=== PATIENT | male | born 1980 | race Hispanic/Latino ===

== ENCOUNTER 2018-02-18 17:25 | Inpatient (IN) | payer BC ==
[2018-02-18] MEDS ORDERED: Eptifibatide 20 mg/10mL Inj IVP STA ×2 (17:34→17:35)
[2018-02-18] MEDS ORDERED: Sodium Chloride 0.9% 500 ML IV STA (17:35)
--- NOTE | 2018-02-18 17:36 | ED PDOC ---
Arrival/HPI - General Chief Complaint: Chest Pain Time Seen by Provider: 02/18/18 17:28 Historian: Patient, EMS - History of Present Illness Narrative History of Present Illness (Text): 02/18/18 1725 pt p/w + syncope/indigestion/chest aches prior to emergency department arrival; pt presented himself to local urgent care center ([facility]) prior to emergency department arrival today; pt states he was at a wake and was sitting when he passed out; pt also noted indigestion like symptoms since last night; pt states NO chest pain/pressure, + mild shortness of breath, + lightheadedness , + sweating; no fever/chills, no palpitations, no abd pain, no n/v, no numbness /tingling; pt denied other complaints; pt's EKG at the local urgent care clinic was significant for acute AR and the doctor there contacted me and notified me of the finding; pt was given full dose ASA and BRILINTA (180mg) from [facility] and pt is to be transferred to the emergency department. upon arrival to the emergency department, I activated Code heart. pt is currently awake and alert pt is cooperative pt denied any urinary/bowel changes no gross bleeding PCP: ?? pt smokes cigars family hx: significant for heart disease in grand parents Time/Duration: 24 hours Symptom Onset: Sudden Symptom Course: Unchanged Severity Level: Mild Activities at Onset: Rest Context: Other (while at a wake) Past Medical History - Provider Review Nursing Documentation Reviewed: Yes - Travel History Have you recently traveled outside [place] w/in the past 3 mons?: No - Past History Past History: Non-Contributing - Infectious Disease Hx of Infectious Diseases: None - Cardiac Hx Cardiac Disorders: No - Gastrointestinal Hx Gastroesophageal Reflux: Yes - Psychiatric Hx Substance Use: No Family/Social History - Physician Review Nursing Documentation Reviewed: Yes Family/Social History: No Known Family HX Smoking Status: smoke cigars Hx Alcohol Use: No Hx Substance Use: No Hx Substance Use Treatment: No Allergies/Home Meds Allergies/Adverse Reactions: Allergies No Known Allergies Allergy (Verified 02/18/18 17:27) Home Medications: Home Meds Medication Instructions Recorded Confirmed Ranitidine HCl [Zantac] 300 mg PO BID 02/18/18 02/18/18 Review of Systems - Review of Systems Constitutional: Normal Eyes: Normal ENT: Normal Respiratory: absent: SOB Cardiovascular: Chest Pain, SHAH, Syncope. absent: Palpitations Gastrointestinal: Normal. absent: Abdominal Pain Genitourinary Male: Normal Musculoskeletal: Normal Skin: Normal Neurological: Dizziness Endocrine: Diaphoresis Hemo/Lymphatic: Normal Psychiatric: Normal Physical Exam - Physical Exam Narrative Physical Exam (Text): 02/18/18 1728 General: alert/awake, GCS = 15, oriented x 3, resting in bed, uncomfortable, cooperative, interactive; NAD Head: NC/AT EYE: PERRLA, EOMI, sclera anicteric, no nystagmus, no photophobia; visual field intact b/l Facial: WNL Oral: uvula/tongue are midline, no exudate/lesions, no drooling/stridor, no dysphonia; intact dentitions; moist oral mucosa NECK: intact ROM, no midline tenderness, no nuchal rigidity, no meningeal signs ; no step off Chest: CTA b/l, no w/r/r; no tachypenia, no accessory muscle use noted Cardiac: +S1, +S2, no m/r/r, + tachycardia Abdominal: +BS, soft/nd/nt, well nourished patient; no masses/rebound/guarding/ rigidity; no carrington's sign, no mcburney's point tenderness Extremities: intact ROM, strength 5/5 grossly intact in all limbs, neurovasc intact b/l; + ambulatory; reflex +2/2; no pitting edema/swelling b/l; no Marina' s sign b/l BACK: no step off, no midline tenderness, NO crepitus, no gross deformities noted; Intact ROM SKIN: cap refill < 1 sec, no ulcerations, no petechiae, no rashes NEURO: CNII-XII WNL, no facial asymmetries, no slurr speech, oriented x 3 NIH stroke scale ~ 0 Psych: normal insight, normal affect; follows command with ease Vital Signs Reviewed: Yes Vital Signs Temp Pulse Resp BP Pulse Ox 02/18/18 18:00 98 F 86 18 143/69 98 02/18/18 17:51 98 H 18 129/92 H 100 02/18/18 17:25 98.5 F 122 H 18 148/85 99 Temperature: Afebrile Blood Pressure: Hypertensive Pulse: Tachycardic Respiratory Rate: Normal Appearance: Positive for: Well-Appearing, Uncomfortable. No: Non-Toxic, Ill- Appearing, Unkept Pain Distress: None Mental Status: Positive for: Alert and Oriented X 3 - Systems Exam Head: Present: Atraumatic, Normocephalic Medical Decision Making ED Course and Treatment: 02/18/18 17:34 Impression: syncope/chest pain, acute AR I have considered all differential diagnoses regarding patients chief medical complaints/clinical findings which include but are not limited to: acute AR Plan: syncope/chest pain -- labs -- acs eval -- xray -- Reassess and disposition Prior Visits: NO PREVIOUS visits noted Progress Notes: pt's vital signs: noted elevated hr pt is awake and alert pt states he does not have chest pain/pressure 02/18/18 17:27 Code heart activated at this time. pt is made aware of his medical results agrees with intervention/admission 02/18/18 17:32 Discussed case in detail with Dr. Ward (card cath licensed professional counselor) who wants Integrilin bolus x2 and drip. Dr. Ward does not want Heparin; will take patient to the garden labourer 02/18/18 17:39 Patient reports chest pain is minimal. Patient is awake, alert, responding properly and cooperative. 02/18/18 17:41 Discussed case in detail with Dr. Duvall, PCP licensed professional counselor. Agrees with plan of care and would like to consult shredding machine operator licensed professional counselor; will admit patient to his service 02/18/18 17:43 Dr. Olvera, shredding machine operator on-call, made aware. Will evaluate the patient after patient is catheterized. 02/18/18 17:51 Patient had an episode of unresponsive ventricular tachycardia, was shocked twice, and became responsive bolus of amiodarone was provided to the patient vital signs noted with mild HTN pt is awake/alert, oriented x 3 pt is subsequently transported to the garden labourer for further intervention Re-evaluation Time: 17:55 Reassessment Condition: Worse - Critical Care Critical Care Minutes: 45 minutes Critical Care Time: Excluding Proc Time Narrative Critical Care (Text): 02/18/18 18:24 critical care time: 45min, excluding procedure time, excluding time teaching residents/students/mid-level providers; including initial eval/diagnosis, diagnostic interpretation, re-eval, consultations, final disposition - Lab Interpretations Lab Results: 02/18/18 17:45 02/18/18 17:45 Lab Results 02/18/18 17:45: PT 11.5, INR 1.01, APTT 27.9 02/18/18 17:45: Sodium 140, Potassium 3.3 L, Chloride 100, Carbon Dioxide 22, Anion Gap 22 H, BUN 13, Creatinine 0.7 L, Est GFR ( Amer) > 60, Est GFR ( Non-Af Amer) > 60, Random Glucose 146 H, Calcium 9.8, Magnesium 1.9, Total Bilirubin 0.5, AST 71 H, ALT 82 H, Alkaline Phosphatase 57, Lactate Dehydrogenase 574, Total Creatine Kinase 220, Troponin I 0.09, NT-Pro-B Natriuret Pep 82.3, Total Protein 8.2, Albumin 5.1 H, Globulin 3.1, Albumin/ Globulin Ratio 1.6 02/18/18 17:45: WBC 10.8, RBC 5.09, Hgb 15.1, Hct 42.4, MCV 83.3, MCH 29.7, MCHC 35.6, RDW 12.8, Plt Count 240, MPV 10.9, Gran % 65.6, Lymph % (Auto) 25.8, [place] % (Auto) 7.7 H, Eos % (Auto) 0.7 L, Baso % (Auto) 0.2, Gran # 7.10 H, Lymph # (Auto) 2.8, [place] # (Auto) 0.8 H, Eos # (Auto) 0.1, Baso # (Auto) 0.02 I have reviewed the lab results: Yes Interpretation: Abnormal lab values (elevated GLUC/trop, decr K) - RAD Interpretation Narrative RAD Interpretations (Text): 02/18/18 18:26 Chest X-Ray: NAD, no widened mediastinum; as read by me Radiology Orders: 02/18/18 17:33 CHEST PORTABLE [RAD] Stat Desilverizer: ED Physician - EKG Interpretation EKG Interpretation (Text): 02/18/18 18:27 SINUS tach at 130 bpm, normal axis, no ectopy, ST elevation noted II/III/F/V6, depressions noted L, V2-5; ACUTE AR; no old ekg to compare with Interpreted by ED Physician: Yes Type: 12 lead EKG Comparison: No previous EKG avail. - Medication Orders Current Medication Orders: Eptifibatide (Integrilin) 75 mg in 100 mls @ 16.67 mls/hr IV .Q6H GUILLAUME; 2 MCG/KG /MIN PRN Reason: Protocol Sodium Chloride (Sodium Chloride 0.9%) 1,000 mls @ 100 mls/hr IV .Q10H GUILLAUME Discontinued Medications Eptifibatide (Integrilin Bolus) 18.7 mg IVP STAT STA Stop: 02/18/18 17:35 Last Admin: 02/18/18 17:44 Dose: 18.7 mg Comments: given 9ml x2 10 mins apart IVP Administration Document 02/18/18 17:44 [facility] (Rec: 02/18/18 18:13 [facility] [id number]) Charges for Administration # of IVP Administrations 2 Eptifibatide (Integrilin Bolus) 18.7 mg IVP STAT STA Stop: 02/18/18 17:36 Last Admin: 02/18/18 17:34 Dose: 18.7 mg IVP Administration Document 02/18/18 17:34 [facility] (Rec: 02/18/18 18:12 [facility] [id number]) Charges for Administration # of IVP Administrations 1 Sodium Chloride (Sodium Chloride 0.9%) 500 mls @ 999 mls/hr IV .Q31M STA Stop: 02/18/18 18:05 Last Admin: 02/18/18 17:35 Dose: 999 mls/hr eMAR Start Stop Document 02/18/18 17:35 [facility] (Rec: 02/18/18 18:12 [facility] [id number]) Intravenous Solution Start Date 02/18/18 Start Time 17:35 Amiodarone HCl/Dextrose (Nexterone 150 Mg In Dextrose 100 Ml (Premix)) 150 mg in 100 mls @ 600 mls/hr IVPB ONCE ONE PRN Reason: Protocol Stop: 02/18/18 18:00 Last Admin: 02/18/18 17:54 Dose: 600 mls/hr eMAR Start Stop Document 02/18/18 17:54 [facility] (Rec: 02/18/18 18:15 [facility] [id number]) Intravenous Solution Start Date 02/18/18 Start Time 17:54 Amiodarone HCl/Dextrose (Nexterone 150 Mg In Dextrose 100 Ml (Premix)) 150 mg in 100 mls @ 600 mls/hr IVPB ONCE ONE PRN Reason: Protocol Stop: 02/18/18 18:01 Metoprolol Tartrate (Lopressor) 5 mg IVP STAT STA Stop: 02/18/18 17:40 Last Admin: 02/18/18 17:45 Dose: Disposition/Present on Arrival - Present on Arrival Any Indicators Present on Arrival: No History of DVT/PE: No History of Uncontrolled Diabetes: No Urinary Catheter: No History of Decub. Ulcer: No History Surgical Site Infection Following: None - Disposition Have Diagnosis and Disposition been Completed?: Yes Diagnosis: Acute AR, Hypokalemia Disposition: HOSPITALIZED Disposition Time: 17:50 Patient Plan: Admission, ICU Patient Problems: Current Active Problems Problem Status Onset Acute AR Acute Hypokalemia Acute Condition: FAIR
[2018-02-18] MEDS ORDERED: Lidocaine 2% Inj (20ml) ONE (17:38)
[2018-02-18] MEDS ORDERED: Phenylephrine 10 mg/ml Inj ONE (17:38)
[2018-02-18] MEDS ORDERED: Iohexol 350mgl/ml 50 ML ONE (17:39)
[2018-02-18] MEDS ORDERED: Iodixanol 320 MG/ML 200 ML BOTTLE IV ONE (17:39)
[2018-02-18] MEDS ORDERED: Midazolam 2 MG/2 ML VIAL ONE ×3 (17:39→18:25)
[2018-02-18] MEDS ORDERED: Metoprolol 1 mg/ml Inj IVP STA (17:39)
[2018-02-18] MEDS ORDERED: Nitroglycerin 50mg in D5W 0 MG/0 ML BOTTLE IV ONE (17:39)
[2018-02-18] MEDS ORDERED: Iodixanol 320 MG/ML 100 ML BOTTLE IV ONE (17:39)
[2018-02-18] MEDS ORDERED: Metoprolol 1 mg/ml Inj IVP ONE (17:43)
[2018-02-18 17:51] LABS: BASO # 0.02 K/mm3 (0.0-2.0); BASO % 0.2 % (0.0-3.0); EOS # 0.1 (0.0-0.7); EOS % 0.7 % (1.5-5.0); GRAN # 7.1 (1.4-6.5); GRAN % 65.6 % (50.0-68.0); HEMOGLOBIN 15.1 g/dL (14.0-18.0); LYMPH # 2.8 (1.2-3.4); LYMPH % 25.8 % (22.0-35.0); MEAN CELL VOLUME 83.3 fl (80.0-105.0); MEAN CORPUSCULAR HEMOGLOBIN 29.7 pg (25.0-35.0); MEAN CORPUSCULAR HGB CONC 35.6 g/dl (31.0-37.0); MEAN PLATELET VOLUME 10.9 fl (7.0-11.0); MONO # 0.8 (0.1-0.6); MONO % 7.7 % (1.0-6.0); RBC 5.09 10^6/uL (3.5-6.1); RED CELL DISTRIBUTION WIDTH 12.8 % (11.5-14.5); WHITE BLOOD COUNT 10.8 10^3/ul (4.5-11.0)
[2018-02-18] MEDS ORDERED: Amiodarone 150 mg/D5W 100 ml 150 MG/100 ML BAG IVPB ONE ×2 (17:51→17:52)
[2018-02-18] MEDS ORDERED: Amiodarone 150mg/3 ml vial ONE (17:55)
[2018-02-18 18:02] LABS: ALB/GLOB RATIO 1.6 (1.1-1.8); ALBUMIN 5.1 g/dL (3.0-4.8); ALT/SGPT 82 U/L (7-56); AST/SGOT 71 U/L (17-59); BLOOD UREA NITROGEN 13 mg/dL (7-21); CALCIUM 9.8 mg/dL (8.4-10.5); GFR AFRICAN-AMERICAN > 60; GFR NON-AFRICAN AMERICAN > 60
[2018-02-18] MEDS ORDERED: Eptifibatide 0.75 mg/ml 75 MG/100 ML BOTTLE IV ONE (18:07)
[2018-02-18 18:08] LABS: INR 1.01 (0.93-1.08); PARTIAL THROMBOPLASTIN TIME 27.9 Seconds (25.1-36.5); PROTHROMBIN TIME 11.5 SECONDS (9.4-12.5)
[2018-02-18 18:13] LABS: B-TYPE NATRIURETIC PEPTIDE 82.3 pg/mL (0-450); TROPONIN I 0.09 ng/mL
--- NOTE | 2018-02-18 18:24 | CP.PCM.PN ---
<Anu Gaines - Last Filed: 02/19/18 07:05> Subjective - Date & Time of Evaluation Date of Evaluation: 02/18/18 Time of Evaluation: 18:22 - Subjective Subjective: Code Heart note 38 yo male presented to ED after syncopal episode at a with chest pressure found to have STEMI. Code heart was called, children's book author was contacted by ED. In ED patient had unresponsive ventricular tachycardia and was shocked twice and given amiodarone bolus. Patient became responsive and was transferred to cardiac cath with non rebreather mask, supplemental oxygen and cardiac monitoring. Patient care was transferred to cardiac cath team and children's book author. Objective - Vital Signs/Intake and Output Vital Signs (last 24 hours): Temp Pulse Resp BP Pulse Ox 98 F 86 18 143/69 98 02/18/18 18:00 02/18/18 18:00 02/18/18 18:00 02/18/18 18:00 02/18/18 18:00 - Medications Medications: Current Medications Eptifibatide (Integrilin) 75 mg in 100 mls @ 16.67 mls/hr IV .Q6H GUILLAUME; 2 MCG/KG /MIN PRN Reason: Protocol Sodium Chloride (Sodium Chloride 0.9%) 1,000 mls @ 100 mls/hr IV .Q10H GUILLAUME - Labs Labs: 02/18/18 17:45 02/18/18 17:45 PT 11.5 SECONDS (9.4-12.5) 02/18/18 17:45 INR 1.01 (0.93-1.08) 02/18/18 17:45 APTT 27.9 Seconds (25.1-36.5) 02/18/18 17:45 - Respiratory Exam Respiratory Exam: absent: Respiratory Distress - Cardiovascular Exam Cardiovascular Exam: Tachycardia - Neurological Exam Neurological Exam: Awake Assessment and Plan - Assessment and Plan (Free Text) Assessment: 38 yo male presented to ED after syncopal episode with chest pressure found to have STEMI, transferred to cardiac clinical laboratory aide. <Nette Bowens - Last Filed: 02/19/18 15:36> Objective - Vital Signs/Intake and Output Vital Signs (last 24 hours): Temp Pulse Resp BP Pulse Ox 98.4 F 82 16 116/60 99 02/19/18 08:00 02/19/18 13:03 02/19/18 12:30 02/19/18 13:03 02/19/18 12:00 - Medications Medications: Current Medications Aspirin (Aspirin) 325 mg PO DAILY [facility] Last Admin: 02/19/18 09:25 Dose: 325 mg Atorvastatin Calcium (Lipitor) 40 mg PO DIN [facility] Last Admin: 02/18/18 21:35 Dose: 40 mg Metoprolol Tartrate (Lopressor) 25 mg PO BRKDIN [facility] Last Admin: 02/19/18 07:30 Dose: Not Given Pantoprazole Sodium (Protonix Ec Tab) 40 mg PO 0600,1600 [facility] Last Admin: 02/19/18 05:50 Dose: 40 mg Ticagrelor (Brilinta) 90 mg PO BID [facility] Last Admin: 02/19/18 09:25 Dose: 90 mg Vitamin D (Vitamin D 400 Intl Units Tab) 400 intlu PO DAILY [facility] - Labs Labs: 02/19/18 05:10 02/19/18 05:10 PT 11.5 SECONDS (9.4-12.5) 02/18/18 17:45 INR 1.01 (0.93-1.08) 02/18/18 17:45 APTT 27.9 Seconds (25.1-36.5) 02/18/18 17:45 Attending/Attestation - Attestation I have personally seen and examined this patient.: Yes I have fully participated in the care of the patient.: Yes I have reviewed all pertinent clinical information, including history, physical exam and plan: Yes Notes (Text): 02/19/18 15:34 attending note; Patient seen and examined with resident during code heart. Patient is 36-year-old male admitted with chest pain and syncopal episode. patient was found to have acute ST elevation CO in the inferior leads. Patient was treated with aspirin, Integrilin, beta javi. Patient had an episode of ventricular fibrillation in the ER. Shocked twice. Started on IV amiodarone. Patient was transferred to cardiac clinical laboratory aide. Status post cardiac cath and drug-eluting stent placement. Monitor patient closely in ICU. Further care By PMD and children's book author.
[2018-02-18] MEDS: Amiodarone 360 mg/D5W 200 ml 360 MG/200 ML BAG IV SCH (19:00)
[2018-02-18] MEDS: Eptifibatide 0.75 mg/ml 75 MG/100 ML BOTTLE IV SCH (19:00)
--- NOTE | 2018-02-18 19:55 | CP.PCM.CON ---
<Cristina Méndez - Last Filed: 02/18/18 22:27> History of Present Illness - History of Present Illness History of Present Illness: PGY-[address] Gregg ICU consult: Code Heart Mr Nathan, 38 M c/o syncope/indigestion/chest aches prior to emergency department arrival. Starting last night, Pt noticed anterior chest comfort of dull burning ache last night and attributed it as indigestion last night. This AM after work, He went to a wake, and while driving he noticed the chest pain radiating to back. During the wake, he was sitting on a sofa. Family noticed that he turned his head to one side, passed out, and suddenly whole body shakes for 5-10 seconds. Pt became awake, and family noticed that he was confused for a while. Then he walked a block to [facility]. His EKG at the local urgent care clinic was significant for acute NH and the doctor there contacted [facility] ED. At the urgent care, he received Brilinta 180, and ASA 325. He was transferred to [facility] ED. Code heart was activated. While in ED, He was found to have V-tach, defibrillate 2x. Pt did not remember the event. 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 In the ED: + mild chest pain/pressure like acid reflux, + mild shortness of breath, + lightheadedness, + sweating; no fever/chills, no palpitations, no abd pain, no n/v, no numbness/tingling; pt denied other complaints; PMD: No. Dr. Shanae Bowen, [place], [place], had recently left her practice PMH: Denies PSH: Denies FH: Maternal grandfather had heart attack at 40 years old SH: smokes cigars All: NKDA Med: None Past Patient History - Infectious Disease Hx of Infectious Diseases: None - Past Social History Smoking Status: smoke cigars - CARDIAC Hx Cardiac Disorders: No - GASTROINTESTINAL Hx Gastroesophageal Reflux: Yes - PSYCHIATRIC Hx Substance Use: No - SURGICAL HISTORY Hx Surgeries: No Meds Allergies/Adverse Reactions: Allergies Allergy/AdvReac Type Severity Reaction Status Date / Time No Known Allergies Allergy Verified 02/18/18 17:27 - Medications Medications: Current Medications Aspirin (Aspirin) 325 mg PO DAILY [facility] Atorvastatin Calcium (Lipitor) 40 mg PO DIN [facility] Eptifibatide (Integrilin) 75 mg in 100 mls @ 16.67 mls/hr IV .Q6H GUILLAUME; 2 MCG/KG /MIN PRN Reason: Protocol Stop: 02/19/18 08:00 Sodium Chloride (Sodium Chloride 0.9%) 1,000 mls @ 100 mls/hr IV .Q10H [facility] Stop: 02/19/18 14:00 Amiodarone HCl/Dextrose (Nexterone 360 Mg In D5w 200 Ml (Premix)) 360 mg in 200 mls @ 33.333 mls/hr IV .Q6H GUILLAUME; 1 MG/MIN PRN Reason: Protocol Stop: 02/19/18 00:30 Amiodarone HCl/Dextrose (Nexterone 360 Mg In D5w 200 Ml (Premix)) 360 mg in 200 mls @ 16.667 mls/hr IV .Q12H GUILLAUME; 0.5 MG/MIN PRN Reason: Protocol Potassium Chloride (K-Dur 20 Meq Er Tab) 40 meq PO BRK [facility] Ticagrelor (Brilinta) 90 mg PO BID [facility] Physical Exam - Constitutional Appears: No Acute Distress - Head Exam Head Exam: ATRAUMATIC, NORMAL INSPECTION, NORMOCEPHALIC - Eye Exam Eye Exam: EOMI, Normal appearance, PERRL. absent: Scleral icterus Pupil Exam: NORMAL ACCOMODATION - ENT Exam ENT Exam: Mucous Membranes Moist - Neck Exam Additional comments: supple. No JVD - Respiratory Exam Respiratory Exam: Clear to Auscultation Bilateral, NORMAL BREATHING PATTERN - Cardiovascular Exam Cardiovascular Exam: REGULAR RHYTHM, +S1, +S2 - GI/Abdominal Exam GI & Abdominal Exam: Normal Bowel Sounds, Soft. absent: Distended, Guarding, Rigid - Extremities Exam Extremities exam: Positive for: normal capillary refill, pedal pulses present. Negative for: calf tenderness Additional comments: R groin access dressing intact. no hematoma - Neurological Exam Neurological exam: Alert, Oriented x3 - Psychiatric Exam Psychiatric exam: Normal Affect, Normal Mood - Skin Skin Exam: Dry, Warm Results - Vital Signs Recent Vital Signs: Last Vital Signs Temp 98 F 02/18/18 18:00 Pulse 86 02/18/18 18:00 Resp 18 02/18/18 18:00 BP 143/69 02/18/18 18:00 Pulse Ox 98 02/18/18 18:00 - Labs Result Diagrams: 02/18/18 17:45 02/18/18 17:45 Labs: Laboratory Results - last 24 hr 02/18/18 02/18/18 02/18/18 17:45 17:45 17:45 WBC 10.8 RBC 5.09 Hgb 15.1 Hct 42.4 MCV 83.3 MCH 29.7 MCHC 35.6 RDW 12.8 Plt Count 240 MPV 10.9 Gran % 65.6 Lymph % (Auto) 25.8 [place] % (Auto) 7.7 H Eos % (Auto) 0.7 L Baso % (Auto) 0.2 Gran # 7.10 H Lymph # (Auto) 2.8 [place] # (Auto) 0.8 H Eos # (Auto) 0.1 Baso # (Auto) 0.02 PT 11.5 INR 1.01 APTT 27.9 Sodium 140 Potassium 3.3 L Chloride 100 Carbon Dioxide 22 Anion Gap 22 H BUN 13 Creatinine 0.7 L Est GFR ( Amer) > 60 Est GFR (Non-Af Amer) > 60 Random Glucose 146 H Calcium 9.8 Magnesium 1.9 Total Bilirubin 0.5 AST 71 H ALT 82 H Alkaline Phosphatase 57 Lactate Dehydrogenase 574 Total Creatine Kinase 220 Troponin I 0.09 NT-Pro-B Natriuret Pep 82.3 Total Protein 8.2 Albumin 5.1 H Globulin 3.1 Albumin/Globulin Ratio 1.6 Assessment & Plan - Assessment and Plan (Free Text) Plan: STEMI s/p DIVYA at RCA and LAD via R femoral access with angioseal 2 vessel disease FHx of premature cardiac event Seizure like activity likely secondary to STEMI related hypoxia Marijuana user Cigar smoker Neuro Seizure precaution Defer to primary whether to consult CK 220, trend CK due to seizure like activity UDS (+) Cannabinoids Pulm Maintain SaO2, NC PRN Cardio Amiodarone gtt per ACLS protocol Integrillin to be stopped at 7:30am ASA 325 daily, Brilinta, Lipitor 40, Metoprolol 25 BID AM EKG GI HHD Mild transaminitis, trend LFT Monitor i/o NS@100 to prevent contrast nephropathy Endo Pending TSH, T4, A1C, lipid panel K 3.3, repleted Heme No bleeding post cath ID No active issue PVX Protonix per primary team DVT pvx Will start tomorrow. Currently pt on integrillin gtt and got 5000 heparin s/r/d/w Dr. Gregg <Jose Gregg - Last Filed: 02/19/18 04:51> Meds - Medications Medications: Current Medications Aspirin (Aspirin) 325 mg PO DAILY [facility] Atorvastatin Calcium (Lipitor) 40 mg PO DIN [facility] Last Admin: 02/18/18 21:35 Dose: 40 mg Eptifibatide (Integrilin) 75 mg in 100 mls @ 16.67 mls/hr IV .Q6H GUILLAUME; 2 MCG/KG /MIN PRN Reason: Protocol Stop: 02/19/18 08:00 Last Admin: 02/19/18 01:07 Dose: 16.67 mls/hr Sodium Chloride (Sodium Chloride 0.9%) 1,000 mls @ 100 mls/hr IV .Q10H [facility]AU[facility] Stop: 02/19/18 14:00 Last Admin: 02/19/18 04:42 Dose: 100 mls/hr Amiodarone HCl/Dextrose (Nexterone 360 Mg In D5w 200 Ml (Premix)) 360 mg in 200 mls @ 16.667 mls/hr IV .Q12H [facility]LLAUME; 0.5 MG/MIN PRN Reason: Protocol Last Admin: 02/19/18 00:30 Dose: 16.667 mls/hr Metoprolol Tartrate (Lopressor) 25 mg PO BRKDIN [facility] Pantoprazole Sodium (Protonix Ec Tab) 40 mg PO 0600,1600 [facility] Ticagrelor (Brilinta) 90 mg PO BID [facility] Results - Vital Signs Recent Vital Signs: Last Vital Signs Temp 98.7 F 02/18/18 20:06 Pulse 73 02/18/18 20:10 Resp 18 02/18/18 20:10 BP 127/78 02/18/18 20:00 Pulse Ox 100 02/18/18 20:10 - Labs Result Diagrams: 02/18/18 17:45 02/18/18 17:45 Labs: Laboratory Results - last 24 hr 02/18/18 02/18/18 20:29 20:29 Urine Color Yellow Urine Appearance Clear Urine pH 7.0 Ur Specific [place] 1.010 Urine Protein Negative Urine Glucose (UA) Negative Urine Ketones Negative Urine Blood Large H Urine Nitrate Negative Urine Bilirubin Negative Urine Urobilinogen 0.2 Ur Leukocyte Esterase Negative Urine RBC 10 - 15 Urine WBC 0 - 2 Ur Epithelial Cells None Urine Bacteria Small Urine Opiates Screen Negative Urine Methadone Screen Negative Ur Barbiturates Screen Negative Ur Phencyclidine Scrn Negative Ur Amphetamines Screen Negative U Benzodiazepines Scrn Positive H U Oth Cocaine Metabols Negative U Cannabinoids Screen Positive H Attending/Attestation - Attestation I have personally seen and examined this patient.: Yes I have fully participated in the care of the patient.: Yes I have reviewed all pertinent clinical information: Yes Notes (Text): 02/19/18 04:50 Patient was seen in ICU-1. Agree with history, physical examination, assessment and plan.
[2018-02-18] MEDS ORDERED: Potassium Chloride 20 mEq ER Tab PO ONE (20:26)
[2018-02-18 20:39] VITALS: BMI 34.0
[2018-02-18 21:00] LABS: BARBITURATES, UR NEGATIVE (NEGATIVE); BENZODIAZEPINES, UR POSITIVE (NEGATIVE); OPIATES, UR NEGATIVE (NEGATIVE); PHENCYCLIDINE, UR NEGATIVE (NEGATIVE)
[2018-02-18 21:04] LABS: URINE APPEARANCE CLEAR (CLEAR); URINE BILIRUBIN NEGATIVE (NEGATIVE); URINE BLOOD LARGE (NEGATIVE); URINE COLOR YELLOW (YELLOW); URINE GLUCOSE (UA) NEGATIVE (NEGATIVE); URINE LEUKOCYTE ESTERASE NEGATIVE Leu/uL (NEGATIVE); URINE PROTEIN NEGATIVE mg/dL (<30 mg/dL); URINE UROBILINOGEN 0.2 E.U./dL (<1 E.U./dL)
[2018-02-18 21:11] LABS: URINE BACTERIA SMALL (NEG); URINE WBC 0 - 2 /hpf (0-6)
[2018-02-18] MEDS: Sodium Chloride 0.9% 1,000 ML IV SCH (21:33)
[2018-02-19] MEDS ORDERED: Amiodarone 360 mg/D5W 200 ml 360 MG/200 ML BAG IV SCH (00:30)
--- NOTE | 2018-02-19 00:46 | CARDCATH ---
PROCEDURE DATE: 02/18/2018 AN EMERGENCY CARDIAC CATH AND PTCA HISTORY: The patient is a 38-year-old male who presented with an acute inferior wall ME complicated by ventricular tachycardia which required three defibrillations. The patient's ventricular tachycardia resulted in syncope x3. The patient was given intravenous Integrilin, aspirin and Brilinta in the emergency room and brought up to the chemical laboratory scientist for an emergency procedure. PROCEDURE: Emergency PTCA and stent of an RCA. PTCA and stent of an LAD. Left heart catheterization, coronary arteriography, left ventriculogram. The right femoral artery was cannulated with 6-Urdu sheath. There were no complications. I provided moderate sedation with assistance monitoring the hemodynamic and physiologic status of the patient. The patient receives intravenous fentanyl and Versed. Overall, moderate sedation time was over 45 minutes. The findings on catheterization revealed a left ventricle that the inferior wall was preserved. Estimated ejection fraction is 50%. His coronary anatomy revealed a right dominant circulation. The RCA was a dominant vessel which revealed intimal irregularities. The distal portion of the RCA divided to a PDA which was free of critical lesions, but the posterior lateral branch which was a large vessel was occluded with an intracoronary thrombus. The left main artery was unremarkable. The LAD and diagonal vessels revealed diffuse intimal irregularities. There is a 80-90% stenosis in the midportion which was a long vessel extending before and after a diagonal vessel. The circumflex artery and obtuse marginal branches were free of significant disease. The patient was given 5000 units of intravenous heparin, which resulted in ACT of 240. With IV Integrilin running, the guiding catheter was placed in the ostium of the RCA. An 0.014 ATW wire was used to cross the total occlusion. A 2.0 balloon was utilized to predilate the lesion. A 2.75 x 8 mm drug-eluting stent was placed and deployed in the takeoff of the large posterior lateral branch. Repeat coronary arteriography revealed an excellent result with JAVIER III flow and no residual stenoses. This was exchanged for a guiding catheter was placed in the ostium of the left main artery and 0.014 ATW wire was used to cross the critical lesion in the LAD. A 2.0 balloon was utilized to predilate the lesion. A 2.75 x 23 mm drug-eluting stent was placed and deployed at 16 atmospheres of pressure. Repeat coronary arteriography revealed an excellent result with no residual stenosis and JAVIER III flow. Angio-Seal was used to close the femoral artery site. The patient tolerated the procedure well. In summary, the procedure was successful for an emergency PTCA and stent of an occluded RCA as well as PTCA and stent of the mid LAD lesion, under emergency conditions drug-eluting stents were utilized. The patient presented with an acute inferior wall myocardial infarction complicated by three episodes of ventricular tachycardia which required defibrillation. Given these findings, the patient will need to remain on intravenous Integrilin, IV amiodarone as well as aspirin and Brilinta. The patient will be going to the ICU for further observation. Robinson Ward MD
[2018-02-19] MEDS: Eptifibatide 0.75 mg/ml 75 MG/100 ML BOTTLE IV SCH ×2 (01:07→04:45)
[2018-02-19] MEDS ORDERED: Amiodarone 150 mg/D5W 100 ml 150 MG/100 ML BAG IVPB ONE (02:40)
[2018-02-19] MEDS: Sodium Chloride 0.9% 1,000 ML IV SCH ×2 (04:42→20:30)
[2018-02-19 05:28] LABS: BASO # 0.02 K/mm3 (0.0-2.0); BASO % 0.2 % (0.0-3.0); EOS % 0.3 % (1.5-5.0); GRAN # 9.47 (1.4-6.5); GRAN % 76.6 % (50.0-68.0); HEMOGLOBIN 14.8 g/dL (14.0-18.0); LYMPH # 1.7 (1.2-3.4); LYMPH % 13.5 % (22.0-35.0); MEAN CELL VOLUME 83.8 fl (80.0-105.0); MEAN CORPUSCULAR HEMOGLOBIN 29.5 pg (25.0-35.0); MEAN CORPUSCULAR HGB CONC 35.2 g/dl (31.0-37.0); MEAN PLATELET VOLUME 10.8 fl (7.0-11.0); MONO # 1.2 (0.1-0.6); MONO % 9.4 % (1.0-6.0); RBC 5.01 10^6/uL (3.5-6.1); RED CELL DISTRIBUTION WIDTH 13.2 % (11.5-14.5); WHITE BLOOD COUNT 12.4 10^3/ul (4.5-11.0)
[2018-02-19] MEDS: Pantoprazole 40 mg EC Tab PO SCH ×2 (05:50→16:26)
[2018-02-19 05:54] LABS: BLOOD UREA NITROGEN 10 mg/dL (7-21)
[2018-02-19 05:55] LABS: ALBUMIN 4.3 g/dL (3.0-4.8); CALCIUM 8.9 mg/dL (8.4-10.5); GFR AFRICAN-AMERICAN > 60; GFR NON-AFRICAN AMERICAN > 60
[2018-02-19 05:56] LABS: ALB/GLOB RATIO 1.6 (1.1-1.8); ALT/SGPT 161 U/L (7-56); AST/SGOT 685 U/L (17-59); HDL CHOLESTEROL 39 mg/dL (29-60); LDL CHOLESTEROL 114 mg/dL (0-129)
[2018-02-19 07:25] LABS: FREE T4 0.91 ng/dL (0.78-2.19)
[2018-02-19] MEDS ORDERED: Potassium Chloride 20 mEq ER Tab PO SCH ×2 (08:00→10:00)
[2018-02-19 08:29] LABS: T4 6.5 ug/dL (5.5-11.0)
--- NOTE | 2018-02-19 08:53 | HP ---
HISTORY OF PRESENT ILLNESS: The patient is a 38-year-old male, who was brought to the [facility] emergency room by the [facility] ambulance from the [facility] ER where the patient presented after the patient experienced a syncopal episode while the patient was attending a wake in the neighborhood. The patient passed out and lost consciousness, which was witnessed by the patient's and uncle, who were present in the wake and patient passed out for a few seconds, but less than a minute. The patient was then transferred to [facility] emergency room on [address] in [place] where the patient was found to have ST elevation myocardial infarction and the patient was brought to the [facility] emergency room. According to the ER physician evaluation, Dr. Boudreaux, patient presented with syncopal episode, chest congestion, chest pain. The patient's last recollection of the event was that he was sitting up in the wake and passed out. The patient also reports last 12 hours complaints of indigestion symptoms. No chest pain or pressure. The patient feels dizzy and sweaty. The EKG done at the [facility] ER showed ST elevation. The patient was given aspirin and Brilinta at [facility] emergency room and transferred to [place] emergency room and code heart was activated. REVIEW OF SYSTEMS: Patient's 13-system review was done, pertinent positive and negative dictated above. CODE STATUS: Full code. LIVING WILL, ADVANCE DIRECTIVE: None. ALLERGIES: NONE. HEIGHT: 5 feet 9 inches. WEIGHT: 230. BODY MASS INDEX: 34. HOME MEDICATIONS: Zantac 300 twice a day. SOCIAL HISTORY: Positive for marijuana use on a daily basis as per the patient's , and smoke and social alcohol, and used to be a smoker of cigarettes. 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 FAMILY HISTORY: Positive for heart problems in grandparents. PHYSICAL EXAMINATION: GENERAL: The patient was seen in the cardiac laborer syrup machine and then in the ICU. The patient is seen lying in the stretcher in bed. VITAL SIGNS: T-max 98.5. Telemetry shows sinus rhythm; heart rate 74, 78, 72. Blood pressure 127/78, respiration 16 to 18, O2 sat 97% to 100%. HEENT: Head normocephalic, atraumatic. HEENT shows pink conjunctivae, Anicteric sclerae, dry oral mucosa. No neck rigidity. CHEST: Symmetrical. LUNGS: Shows occasional rhonchi in the upper lung teixeira. CARDIOVASCULAR: S1 and S2, regular rhythm. No audible murmur, gallop or rub at this time. ABDOMEN: Soft, protuberant. Positive bowel sounds. GENITALIA: Male. Positive right groin dressing and Angio-Seal noted. EXTREMITIES: Lower extremity shows positive pulses. VASCULAR: Palpable pulses. MUSCULOSKELETAL: Shows a body mass index of 34. NEUROLOGIC: The patient is alert, awake, oriented x3. Cranial nerves II through XII limited. Gait examination not tested. The patient is lying in the bed. DIAGNOSTICS: CBC is within normal limit. PT/PTT is normal. Chemistry shows potassium of 3.3, anion gap 22, glucose 146, AST 71, ALT 82. BNP 82.3. Troponin 0.09. CPK 220. Urine pH 7, specific gravity 1, large blood, small urine bacteria. Urine drug screen is positive for benzodiazepines and marijuana and cannabinoids. Chest x-ray was done which shows mild cardiomegaly. EKG was done which shows ST elevation in II, III, aVF. The patient while in the emergency room had runs of ventricular tachycardia with patient needed defibrillation and amiodarone bolus was given, and then the patient was transferred to cardiac catheterization. The patient was started on Integrilin drip in the emergency room. The patient was started on amiodarone drip after defibrillation. EKG, ST elevation, sinus tachycardia, II, III, aVF and V6, ST depression, aVL, V2 to V5. No old EKG available for comparison. IMPRESSION: 1. Acute ST elevations inferolateral myocardial infarction with ST elevation in II, III, aVF and V6. 2. Ventricular tachycardia cardiac arrest. 3. Syncope secondary to acute ST elevation myocardial infarction and ventricular tachycardia cardiac arrest. 4. Status post code heart. 5. Status post percutaneous transluminal angioplasty and stent placement of the right coronary artery and left anterior descending artery. 6. Morbid obesity with elevated body mass index. 7. Hypokalemia. 8. Increased anion gap, possible increased anion gap metabolic acidosis. 9. Hyperglycemia. 10. Transaminitis. 11. Microscopic hematuria. 12. History of marijuana use with urine drug screen positive for cannabinoids and benzodiazepines. 13. Multivessel coronary artery disease. PLAN: At this time, the patient will be admitted to ICU post angioplasty and post code heart and post ST elevation myocardial infarction. Repeat serial labs. Repeat serial cardiac enzymes, lipid panel, LFTs, magnesium and phosphorus, thyroid panel. Repeat CBC ordered. Cardiology consultation and center manager consultation ordered. The patient is to be continued on amiodarone drip after the bolus was given. The patient will be started on aspirin 325 daily, Brilinta 90 mg twice a day, Integrilin drip will be continued after the bolus, potassium supplementation has been ordered with IV and p.o. Lipitor, statins has been ordered. Lopressor 25 twice a day ordered. GI and DVT prophylaxis ordered. IV fluids ordered. Oxygen 2 liters ordered. Repeat EKG ordered. Echo with Doppler ordered. SCDs and ATUL stockings ordered. The patient's condition, diagnosis, treatment plan, management plan discussed extensively with the patient and the patient's and the patient's family present in the laborer syrup machine and in the waiting area, by me and Dr. Ward. All of the above was discussed and explained to the patient and the patient's family in layman's language. All questions concerned answered. All risks, consequences, complications and other possibilities discussed and explained with the patient and the patient's and the family present in the in the waiting area and in the cardiac catheterization. Time spent in the entire management, review of entire data, and discussion with Cardiology, review of all procedures is more than 1 hour 55 minutes. Critical care time spent is more than 1 hour, 55 minutes. At present, the patient will be admitted to Intensive Care Unit pending further evaluation and management by all physician involved in the care of the patient. The patient's condition is critical. Prognosis is guarded. Dictated and electronically signed, not read. Eric Duvall MD
--- NOTE | 2018-02-19 09:03 | CT ---
PROCEDURE: CT HEAD WITHOUT CONTRAST. HISTORY: seizure like activity prior to hosp COMPARISON: None available. TECHNIQUE: Axial computed tomography images were obtained through the head/brain without intravenous contrast. Radiation dose: Total exam DLP = 836 mGy-cm. This CT exam was performed using one or more of the following dose reduction techniques: Automated exposure control, adjustment of the mA and/or kV according to patient size, and/or use of iterative reconstruction technique. FINDINGS: HEMORRHAGE: No intracranial hemorrhage. BRAIN: No mass effect or edema. No atrophy or chronic microvascular ischemic changes. VENTRICLES: Unremarkable. No hydrocephalus. CALVARIUM: Unremarkable. PARANASAL SINUSES: Unremarkable as visualized. No significant inflammatory changes. MASTOID AIR CELLS: Unremarkable as visualized. No inflammatory changes. OTHER FINDINGS: None. IMPRESSION: No acute findings
[2018-02-19 09:10] LABS: CK MB% 3.8 % (2.5-3.0)
--- NOTE | 2018-02-19 10:06 | PN ---
DATE: 02/19/2018 CARDIOLOGY FOLLOWUP SUBJECTIVE: The patient is chest pain free after his acute inferior wall NM and status post PTCA and stent of two vessels. PHYSICAL EXAMINATION: VITAL SIGNS: Blood pressure is 112/68, the heart rate is in the 60s, normal sinus rhythm with occasional episodes of AIVR. NECK: Negative JVD. LUNGS: Without rales. HEART: Reveals S1, S2. EXTREMITIES: Without edema. LABORATORY DATA: Hemoglobin is 14.8. Troponins peaked at 166. Cholesterol is 185. BUN and creatinine are unremarkable. Magnesium is 2.1 with a potassium of 4.1. IMPRESSION: 1. Status post acute inferior wall myocardial infarction. 2. Status post defibrillation for ventricular tachycardia x3. 3. Two-vessel coronary artery disease. 4. Borderline diabetes mellitus. 5. Accelerated idioventricular rhythm. PLAN: Given these findings, we will discontinue his IV Integrilin today. We will discontinue his IV amiodarone. We will need to keep on telemetry for 24-48 hours to monitor his ventricular arrhythmias. Hemodynamically, the patient is doing well. Robinson Ward MD
--- NOTE | 2018-02-19 10:50 | RAD ---
HISTORY: code heart COMPARISON: No prior. FINDINGS: LUNGS: No active pulmonary disease. PLEURA: No significant pleural effusion identified, no pneumothorax apparent. CARDIOVASCULAR: Normal. OSSEOUS STRUCTURES: No significant abnormalities. VISUALIZED UPPER ABDOMEN: Normal. OTHER FINDINGS: None. IMPRESSION: No active disease.
--- NOTE | 2018-02-19 11:25 | CP.CCUPN ---
<SreeUday Watson - Last Filed: 02/19/18 11:19> CCU Subjective - Physician Review Events Since Last Encounter (Free Text): 02/19/18 08:00A Patient seen and examined at bedside; patient had arrhythmia overnight, was started on amiodarone gtt, stopped for now. Patient states he is feeling much better. No acute complaints CCU Objective - Vital Signs / Intake & Output Vital Signs (Last 4 hours): Vital Signs Temp Pulse Resp BP Pulse Ox 02/19/18 10:30 55 L 19 98 02/19/18 10:20 61 21 98 02/19/18 10:10 52 L 20 100 02/19/18 10:00 65 17 99 02/19/18 09:50 56 L 15 99 02/19/18 09:40 56 L 16 100 02/19/18 09:30 74 21 100 02/19/18 09:20 64 17 100 02/19/18 09:10 65 14 100 02/19/18 09:00 57 L 14 100 02/19/18 08:50 66 18 97 02/19/18 08:44 58 L 02/19/18 08:10 59 L 14 99 02/19/18 08:00 98.4 F 71 19 112/68 100 02/19/18 07:50 62 23 100 02/19/18 07:40 63 16 109/56 L 100 02/19/18 07:30 60 112/68 100 02/19/18 07:20 60 12 96/68 L 100 Intake and Output (Last 8hrs): Intake & Output 02/18/18 02/19/18 02/19/18 22:59 06:59 14:59 Weight 104.326 kg 103.419 kg - Physical Exam Head: Positive for: Atraumatic, Normocephalic - Medications Active Medications: Active Medications Generic Name Dose Route Start Last Admin Trade Name Freq PRN Reason Stop Dose Admin Aspirin 325 mg 02/19/18 10:00 02/19/18 09:25 Aspirin PO 325 mg DAILY GUILLAUME Administration Atorvastatin Calcium 40 mg 02/18/18 19:00 02/18/18 21:35 Lipitor PO 40 mg DIN GUILLAUME Administration Sodium Chloride 1,000 mls @ 100 mls/hr 02/18/18 17:45 02/19/18 04:42 Sodium Chloride 0.9% IV 02/19/18 14:00 100 mls/hr .Q10H GUILLAUME Administration Metoprolol Tartrate 25 mg 02/19/18 07:30 02/19/18 07:30 Lopressor PO Not Given BRKDIN GUILLAUME Pantoprazole Sodium 40 mg 02/19/18 06:00 02/19/18 05:50 Protonix Ec Tab PO 40 mg 0600,1600 GUILLAUME Administration Ticagrelor 90 mg 02/19/18 10:00 02/19/18 09:25 Brilinta PO 90 mg BID GUILLAUME Administration - Patient Studies Lab Studies: Lab Studies 02/19/18 02/19/18 02/19/18 Range/Units 05:10 05:10 05:10 WBC 12.4 H (4.5-11.0) 10^3/ul RBC 5.01 (3.5-6.1) 10^6/uL Hgb 14.8 (14.0-18.0) g/dL Hct 42.0 (42.0-52.0) % MCV 83.8 (80.0-105.0) fl MCH 29.5 (25.0-35.0) pg MCHC 35.2 (31.0-37.0) g/dl RDW 13.2 (11.5-14.5) % Plt Count 233 (120.0-450.0) 10^3/uL MPV 10.8 (7.0-11.0) fl Gran % 76.6 H (50.0-68.0) % Lymph % (Auto) 13.5 L (22.0-35.0) % [place] % (Auto) 9.4 H (1.0-6.0) % Eos % (Auto) 0.3 L (1.5-5.0) % Baso % (Auto) 0.2 (0.0-3.0) % Gran # 9.47 H (1.4-6.5) Lymph # (Auto) 1.7 (1.2-3.4) [place] # (Auto) 1.2 H (0.1-0.6) Eos # (Auto) 0.0 (0.0-0.7) Baso # (Auto) 0.02 (0.0-2.0) K/mm3 Sodium 143 (132-148) mmol/L Potassium 4.1 (3.6-5.0) mmol/L Chloride 105 (98-107) mmol/L Carbon Dioxide 29 (21-33) mmol/L Anion Gap 13 (10-20) BUN 10 (7-21) mg/dL Creatinine 0.7 L (0.8-1.5) mg/dl Est GFR ( Amer) > 60 Est GFR (Non-Af Amer) > 60 Random Glucose 111 H (70-110) mg/dL Calcium 8.9 (8.4-10.5) mg/dL Phosphorus 3.8 (2.5-4.5) mg/dL Magnesium 2.1 (1.7-2.2) mg/dL Total Bilirubin 0.4 (0.2-1.3) mg/dL Direct Bilirubin 0.0 (0.0-0.4) mg/dL AST 685 H D (17-59) U/L ALT 161 H (7-56) U/L Alkaline Phosphatase 41 (38-126) U/L Total Creatine Kinase 5520 H (35-230) U/L CK-MB (CK-2) 208.0 H (0.0-3.6) ng/mL CK-MB (CK-2) % 3.8 H (2.5-3.0) % Troponin I 166.00 H* D ng/mL Total Protein 7.0 (5.8-8.3) g/dL Albumin 4.3 (3.0-4.8) g/dL Globulin 2.7 gm/dL Albumin/Globulin Ratio 1.6 (1.1-1.8) Triglycerides 173 H (35-160) mg/dL Cholesterol 185 (130-200) mg/dL LDL Cholesterol Direct 114 (0-129) mg/dL HDL Cholesterol 39 (29-60) mg/dL Free T4 0.91 (0.78-2.19) ng/dL Thyroxine (T4) 6.5 (5.5-11.0) ug/dL TSH 3rd Generation 2.53 (0.46-4.68) mIU/mL Urine Color (YELLOW) Urine Appearance (CLEAR) Urine pH (4.7-8.0) Ur Specific [place] (1.005-1.035) Urine Protein (<30 mg/dL) mg/dL Urine Glucose (UA) (NEGATIVE) mg/dL Urine Ketones (NEGATIVE) mg/dL Urine Blood (NEGATIVE) Urine Nitrate (NEGATIVE) Urine Bilirubin (NEGATIVE) Urine Urobilinogen (<1 E.U./dL) E.U./dL Ur Leukocyte Esterase (NEGATIVE) Gina/uL Urine RBC (0-2) /hpf Urine WBC (0-6) /hpf Ur Epithelial Cells (0-5) /hpf Urine Bacteria (NEG) Urine Opiates Screen (NEGATIVE) Urine Methadone Screen (NEGATIVE) Ur Barbiturates Screen (NEGATIVE) Ur Phencyclidine Scrn (NEGATIVE) Ur Amphetamines Screen (NEGATIVE) U Benzodiazepines Scrn (NEGATIVE) U Oth Cocaine Metabols (NEGATIVE) U Cannabinoids Screen (NEGATIVE) 02/18/18 02/18/18 Range/Units 20:29 20:29 WBC (4.5-11.0) 10^3/ul RBC (3.5-6.1) 10^6/uL Hgb (14.0-18.0) g/dL Hct (42.0-52.0) % MCV (80.0-105.0) fl MCH (25.0-35.0) pg MCHC (31.0-37.0) g/dl RDW (11.5-14.5) % Plt Count (120.0-450.0) 10^3/uL MPV (7.0-11.0) fl Gran % (50.0-68.0) % Lymph % (Auto) (22.0-35.0) % [place] % (Auto) (1.0-6.0) % Eos % (Auto) (1.5-5.0) % Baso % (Auto) (0.0-3.0) % Gran # (1.4-6.5) Lymph # (Auto) (1.2-3.4) [place] # (Auto) (0.1-0.6) Eos # (Auto) (0.0-0.7) Baso # (Auto) (0.0-2.0) K/mm3 Sodium (132-148) mmol/L Potassium (3.6-5.0) mmol/L Chloride (98-107) mmol/L Carbon Dioxide (21-33) mmol/L Anion Gap (10-20) BUN (7-21) mg/dL Creatinine (0.8-1.5) mg/dl Est GFR ( Amer) Est GFR (Non-Af Amer) Random Glucose (70-110) mg/dL Calcium (8.4-10.5) mg/dL Phosphorus (2.5-4.5) mg/dL Magnesium (1.7-2.2) mg/dL Total Bilirubin (0.2-1.3) mg/dL Direct Bilirubin (0.0-0.4) mg/dL AST (17-59) U/L ALT (7-56) U/L Alkaline Phosphatase (38-126) U/L Total Creatine Kinase (35-230) U/L CK-MB (CK-2) (0.0-3.6) ng/mL CK-MB (CK-2) % (2.5-3.0) % Troponin I ng/mL Total Protein (5.8-8.3) g/dL Albumin (3.0-4.8) g/dL Globulin gm/dL Albumin/Globulin Ratio (1.1-1.8) Triglycerides (35-160) mg/dL Cholesterol (130-200) mg/dL LDL Cholesterol Direct (0-129) mg/dL HDL Cholesterol (29-60) mg/dL Free T4 (0.78-2.19) ng/dL Thyroxine (T4) (5.5-11.0) ug/dL TSH 3rd Generation (0.46-4.68) mIU/mL Urine Color Yellow (YELLOW) Urine Appearance Clear (CLEAR) Urine pH 7.0 (4.7-8.0) Ur Specific [place] 1.010 (1.005-1.035) Urine Protein Negative (<30 mg/dL) mg/dL Urine Glucose (UA) Negative (NEGATIVE) mg/dL Urine Ketones Negative (NEGATIVE) mg/dL Urine Blood Large H (NEGATIVE) Urine Nitrate Negative (NEGATIVE) Urine Bilirubin Negative (NEGATIVE) Urine Urobilinogen 0.2 (<1 E.U./dL) E.U./dL Ur Leukocyte Esterase Negative (NEGATIVE) Gina/uL Urine RBC 10 - 15 (0-2) /hpf Urine WBC 0 - 2 (0-6) /hpf Ur Epithelial Cells None (0-5) /hpf Urine Bacteria Small (NEG) Urine Opiates Screen Negative (NEGATIVE) Urine Methadone Screen Negative (NEGATIVE) Ur Barbiturates Screen Negative (NEGATIVE) Ur Phencyclidine Scrn Negative (NEGATIVE) Ur Amphetamines Screen Negative (NEGATIVE) U Benzodiazepines Scrn Positive H (NEGATIVE) U Oth Cocaine Metabols Negative (NEGATIVE) U Cannabinoids Screen Positive H (NEGATIVE) Laboratory Results - last 24 hr 02/18/18 02/18/18 02/19/18 20:29 20:29 05:10 WBC 12.4 H RBC 5.01 Hgb 14.8 Hct 42.0 MCV 83.8 MCH 29.5 MCHC 35.2 RDW 13.2 Plt Count 233 MPV 10.8 Gran % 76.6 H Lymph % (Auto) 13.5 L [place] % (Auto) 9.4 H Eos % (Auto) 0.3 L Baso % (Auto) 0.2 Gran # 9.47 H Lymph # (Auto) 1.7 [place] # (Auto) 1.2 H Eos # (Auto) 0.0 Baso # (Auto) 0.02 Sodium Potassium Chloride Carbon Dioxide Anion Gap BUN Creatinine Est GFR ( Amer) Est GFR (Non-Af Amer) Random Glucose Calcium Phosphorus Magnesium Total Bilirubin Direct Bilirubin AST ALT Alkaline Phosphatase Total Creatine Kinase CK-MB (CK-2) CK-MB (CK-2) % Troponin I Total Protein Albumin Globulin Albumin/Globulin Ratio Triglycerides Cholesterol LDL Cholesterol Direct HDL Cholesterol Free T4 Thyroxine (T4) TSH 3rd Generation Urine Color Yellow Urine Appearance Clear Urine pH 7.0 Ur Specific [place] 1.010 Urine Protein Negative Urine Glucose (UA) Negative Urine Ketones Negative Urine Blood Large H Urine Nitrate Negative Urine Bilirubin Negative Urine Urobilinogen 0.2 Ur Leukocyte Esterase Negative Urine RBC 10 - 15 Urine WBC 0 - 2 Ur Epithelial Cells None Urine Bacteria Small Urine Opiates Screen Negative Urine Methadone Screen Negative Ur Barbiturates Screen Negative Ur Phencyclidine Scrn Negative Ur Amphetamines Screen Negative U Benzodiazepines Scrn Positive H U Oth Cocaine Metabols Negative U Cannabinoids Screen Positive H 02/19/18 02/19/18 05:10 05:10 WBC RBC Hgb Hct MCV MCH MCHC RDW Plt Count MPV Gran % Lymph % (Auto) [place] % (Auto) Eos % (Auto) Baso % (Auto) Gran # Lymph # (Auto) [place] # (Auto) Eos # (Auto) Baso # (Auto) Sodium 143 Potassium 4.1 Chloride 105 Carbon Dioxide 29 Anion Gap 13 BUN 10 Creatinine 0.7 L Est GFR ( Amer) > 60 Est GFR (Non-Af Amer) > 60 Random Glucose 111 H Calcium 8.9 Phosphorus 3.8 Magnesium 2.1 Total Bilirubin 0.4 Direct Bilirubin 0.0 AST 685 H D ALT 161 H Alkaline Phosphatase 41 Total Creatine Kinase 5520 H CK-MB (CK-2) 208.0 H CK-MB (CK-2) % 3.8 H Troponin I 166.00 H* D Total Protein 7.0 Albumin 4.3 Globulin 2.7 Albumin/Globulin Ratio 1.6 Triglycerides 173 H Cholesterol 185 LDL Cholesterol Direct 114 HDL Cholesterol 39 Free T4 0.91 Thyroxine (T4) 6.5 TSH 3rd Generation 2.53 Urine Color Urine Appearance Urine pH Ur Specific [place] Urine Protein Urine Glucose (UA) Urine Ketones Urine Blood Urine Nitrate Urine Bilirubin Urine Urobilinogen Ur Leukocyte Esterase Urine RBC Urine WBC Ur Epithelial Cells Urine Bacteria Urine Opiates Screen Urine Methadone Screen Ur Barbiturates Screen Ur Phencyclidine Scrn Ur Amphetamines Screen U Benzodiazepines Scrn U Oth Cocaine Metabols U Cannabinoids Screen EKG/Cardiology Studies: Cardiology / EKG Studies 02/19/18 02:30 EKG [ELECTROCARDIOGRAM] Stat Comment: Reason For Exam: EKG changes PRE OP:: N Does Patient Have a Pacemaker?: No 02/19/18 07:00 ELECTROCARDIOGRAM DAILY Comment: Reason For Exam: STEMI 02/20/18 07:00 ELECTROCARDIOGRAM DAILY Comment: Reason For Exam: STEMI 02/21/18 07:00 ELECTROCARDIOGRAM DAILY Comment: Reason For Exam: STEMI Critical Care Progress Note - Nutrition Nutrition: Nutrition Category Date Time Status Heart Healthy Diet [DIET] Diets 02/18/18 Dinner Active Assessment/Plan - Assessment and Plan (Free Text) Assessment: STEMI s/p DIVYA at RCA and LAD via R femoral access with angioseal 2 vessel disease FHx of premature cardiac event Seizure like activity likely secondary to STEMI related hypoxia Plan: Neuro Seizure precautions - no need to consult Neurology Maintain euthermia Pulm Maintain SaO2, NC PRN Cardio Amiodarone and Integrillin gtt stopped ASA 325 daily, Brilinta, Lipitor 40, Metoprolol 25 BID GI HHD Trend LFT's Protonix PPX Monitor i/o Can discontinue NS Endo Maintain euglycemia Heme No bleeding post cath - restart dvt ppx ID No active issue Dispo: Patient stable for discharge to telemetry <David Morris - Last Filed: 02/19/18 12:13> CCU Objective - Vital Signs / Intake & Output Vital Signs (Last 4 hours): Vital Signs Pulse Resp Pulse Ox 02/19/18 10:30 55 L 19 98 02/19/18 10:20 61 21 98 02/19/18 10:10 52 L 20 100 02/19/18 10:00 65 17 99 02/19/18 09:50 56 L 15 99 02/19/18 09:40 56 L 16 100 02/19/18 09:30 74 21 100 02/19/18 09:20 64 17 100 02/19/18 09:10 65 14 100 02/19/18 09:00 57 L 14 100 02/19/18 08:50 66 18 97 02/19/18 08:44 58 L Intake and Output (Last 8hrs): Intake & Output 02/18/18 02/19/18 02/19/18 22:59 06:59 14:59 Weight 230 lb 228 lb - Medications Active Medications: Active Medications Generic Name Dose Route Start Last Admin Trade Name Freq PRN Reason Stop Dose Admin Aspirin 325 mg 02/19/18 10:00 02/19/18 09:25 Aspirin PO 325 mg DAILY GUILLAUME Administration Atorvastatin Calcium 40 mg 02/18/18 19:00 02/18/18 21:35 Lipitor PO 40 mg DIN GUILLAUME Administration Enoxaparin Sodium 40 mg 02/19/18 11:45 Lovenox SC DAILY GUILLAUME Protocol Sodium Chloride 1,000 mls @ 100 mls/hr 02/18/18 17:45 02/19/18 04:42 Sodium Chloride 0.9% IV 02/19/18 14:00 100 mls/hr .Q10H GUILLAUME Administration Metoprolol Tartrate 25 mg 02/19/18 07:30 02/19/18 07:30 Lopressor PO Not Given BRKDIN GUILLAUME Pantoprazole Sodium 40 mg 02/19/18 06:00 02/19/18 05:50 Protonix Ec Tab PO 40 mg 0600,1600 GUILLAUME Administration Ticagrelor 90 mg 02/19/18 10:00 02/19/18 09:25 Brilinta PO 90 mg BID GUILLAUME Administration - Patient Studies Lab Studies: Lab Studies 02/19/18 02/19/18 02/19/18 Range/Units 05:10 05:10 05:10 WBC (4.5-11.0) 10^3/ul RBC (3.5-6.1) 10^6/uL Hgb (14.0-18.0) g/dL Hct (42.0-52.0) % MCV (80.0-105.0) fl MCH (25.0-35.0) pg MCHC (31.0-37.0) g/dl RDW (11.5-14.5) % Plt Count (120.0-450.0) 10^3/uL MPV (7.0-11.0) fl Gran % (50.0-68.0) % Lymph % (Auto) (22.0-35.0) % [place] % (Auto) (1.0-6.0) % Eos % (Auto) (1.5-5.0) % Baso % (Auto) (0.0-3.0) % Gran # (1.4-6.5) Lymph # (Auto) (1.2-3.4) [place] # (Auto) (0.1-0.6) Eos # (Auto) (0.0-0.7) Baso # (Auto) (0.0-2.0) K/mm3 Sodium (132-148) mmol/L Potassium (3.6-5.0) mmol/L Chloride (98-107) mmol/L Carbon Dioxide (21-33) mmol/L Anion Gap (10-20) BUN (7-21) mg/dL Creatinine (0.8-1.5) mg/dl Est GFR ( Amer) Est GFR (Non-Af Amer) Random Glucose (70-110) mg/dL Hemoglobin A1c 5.3 (4.2-6.5) % Calcium (8.4-10.5) mg/dL Phosphorus (2.5-4.5) mg/dL Magnesium (1.7-2.2) mg/dL Total Bilirubin (0.2-1.3) mg/dL Direct Bilirubin (0.0-0.4) mg/dL AST (17-59) U/L ALT (7-56) U/L Alkaline Phosphatase (38-126) U/L Total Creatine Kinase (35-230) U/L CK-MB (CK-2) (0.0-3.6) ng/mL CK-MB (CK-2) % (2.5-3.0) % Troponin I ng/mL Total Protein (5.8-8.3) g/dL Albumin (3.0-4.8) g/dL Globulin gm/dL Albumin/Globulin Ratio (1.1-1.8) Triglycerides (35-160) mg/dL Cholesterol (130-200) mg/dL LDL Cholesterol Direct (0-129) mg/dL HDL Cholesterol (29-60) mg/dL 25-OH Vitamin D Total 23.4 L (30.0-100.0) NG/ML Free T4 0.91 (0.78-2.19) ng/dL Thyroxine (T4) 6.5 (5.5-11.0) ug/dL TSH 3rd Generation 2.53 (0.46-4.68) mIU/mL Urine Color (YELLOW) Urine Appearance (CLEAR) Urine pH (4.7-8.0) Ur Specific [place] (1.005-1.035) Urine Protein (<30 mg/dL) mg/dL Urine Glucose (UA) (NEGATIVE) mg/dL Urine Ketones (NEGATIVE) mg/dL Urine Blood (NEGATIVE) Urine Nitrate (NEGATIVE) Urine Bilirubin (NEGATIVE) Urine Urobilinogen (<1 E.U./dL) E.U./dL Ur Leukocyte Esterase (NEGATIVE) Gina/uL Urine RBC (0-2) /hpf Urine WBC (0-6) /hpf Ur Epithelial Cells (0-5) /hpf Urine Bacteria (NEG) Urine Opiates Screen (NEGATIVE) Urine Methadone Screen (NEGATIVE) Ur Barbiturates Screen (NEGATIVE) Ur Phencyclidine Scrn (NEGATIVE) Ur Amphetamines Screen (NEGATIVE) U Benzodiazepines Scrn (NEGATIVE) U Oth Cocaine Metabols (NEGATIVE) U Cannabinoids Screen (NEGATIVE) 02/19/18 02/19/18 02/18/18 Range/Units 05:10 05:10 20:29 WBC 12.4 H (4.5-11.0) 10^3/ul RBC 5.01 (3.5-6.1) 10^6/uL Hgb 14.8 (14.0-18.0) g/dL Hct 42.0 (42.0-52.0) % MCV 83.8 (80.0-105.0) fl MCH 29.5 (25.0-35.0) pg MCHC 35.2 (31.0-37.0) g/dl RDW 13.2 (11.5-14.5) % Plt Count 233 (120.0-450.0) 10^3/uL MPV 10.8 (7.0-11.0) fl Gran % 76.6 H (50.0-68.0) % Lymph % (Auto) 13.5 L (22.0-35.0) % [place] % (Auto) 9.4 H (1.0-6.0) % Eos % (Auto) 0.3 L (1.5-5.0) % Baso % (Auto) 0.2 (0.0-3.0) % Gran # 9.47 H (1.4-6.5) Lymph # (Auto) 1.7 (1.2-3.4) [place] # (Auto) 1.2 H (0.1-0.6) Eos # (Auto) 0.0 (0.0-0.7) Baso # (Auto) 0.02 (0.0-2.0) K/mm3 Sodium 143 (132-148) mmol/L Potassium 4.1 (3.6-5.0) mmol/L Chloride 105 (98-107) mmol/L Carbon Dioxide 29 (21-33) mmol/L Anion Gap 13 (10-20) BUN 10 (7-21) mg/dL Creatinine 0.7 L (0.8-1.5) mg/dl Est GFR ( Amer) > 60 Est GFR (Non-Af Amer) > 60 Random Glucose 111 H (70-110) mg/dL Hemoglobin A1c (4.2-6.5) % Calcium 8.9 (8.4-10.5) mg/dL Phosphorus 3.8 (2.5-4.5) mg/dL Magnesium 2.1 (1.7-2.2) mg/dL Total Bilirubin 0.4 (0.2-1.3) mg/dL Direct Bilirubin 0.0 (0.0-0.4) mg/dL AST 685 H D (17-59) U/L ALT 161 H (7-56) U/L Alkaline Phosphatase 41 (38-126) U/L Total Creatine Kinase 5520 H (35-230) U/L CK-MB (CK-2) 208.0 H (0.0-3.6) ng/mL CK-MB (CK-2) % 3.8 H (2.5-3.0) % Troponin I 166.00 H* D ng/mL Total Protein 7.0 (5.8-8.3) g/dL Albumin 4.3 (3.0-4.8) g/dL Globulin 2.7 gm/dL Albumin/Globulin Ratio 1.6 (1.1-1.8) Triglycerides 173 H (35-160) mg/dL Cholesterol 185 (130-200) mg/dL LDL Cholesterol Direct 114 (0-129) mg/dL HDL Cholesterol 39 (29-60) mg/dL 25-OH Vitamin D Total (30.0-100.0) NG/ML Free T4 (0.78-2.19) ng/dL Thyroxine (T4) (5.5-11.0) ug/dL TSH 3rd Generation (0.46-4.68) mIU/mL Urine Color (YELLOW) Urine Appearance (CLEAR) Urine pH (4.7-8.0) Ur Specific [place] (1.005-1.035) Urine Protein (<30 mg/dL) mg/dL Urine Glucose (UA) (NEGATIVE) mg/dL Urine Ketones (NEGATIVE) mg/dL Urine Blood (NEGATIVE) Urine Nitrate (NEGATIVE) Urine Bilirubin (NEGATIVE) Urine Urobilinogen (<1 E.U./dL) E.U./dL Ur Leukocyte Esterase (NEGATIVE) Gina/uL Urine RBC (0-2) /hpf Urine WBC (0-6) /hpf Ur Epithelial Cells (0-5) /hpf Urine Bacteria (NEG) Urine Opiates Screen Negative (NEGATIVE) Urine Methadone Screen Negative (NEGATIVE) Ur Barbiturates Screen Negative (NEGATIVE) Ur Phencyclidine Scrn Negative (NEGATIVE) Ur Amphetamines Screen Negative (NEGATIVE) U Benzodiazepines Scrn Positive H (NEGATIVE) U Oth Cocaine Metabols Negative (NEGATIVE) U Cannabinoids Screen Positive H (NEGATIVE) 06/11/18 Range/Units 20:29 WBC (4.5-11.0) 10^3/ul RBC (3.5-6.1) 10^6/uL Hgb (14.0-18.0) g/dL Hct (42.0-52.0) % MCV (80.0-105.0) fl MCH (25.0-35.0) pg MCHC (31.0-37.0) g/dl RDW (11.5-14.5) % Plt Count (120.0-450.0) 10^3/uL MPV (7.0-11.0) fl Gran % (50.0-68.0) % Lymph % (Auto) (22.0-35.0) % [place] % (Auto) (1.0-6.0) % Eos % (Auto) (1.5-5.0) % Baso % (Auto) (0.0-3.0) % Gran # (1.4-6.5) Lymph # (Auto) (1.2-3.4) [place] # (Auto) (0.1-0.6) Eos # (Auto) (0.0-0.7) Baso # (Auto) (0.0-2.0) K/mm3 Sodium (132-148) mmol/L Potassium (3.6-5.0) mmol/L Chloride (98-107) mmol/L Carbon Dioxide (21-33) mmol/L Anion Gap (10-20) BUN (7-21) mg/dL Creatinine (0.8-1.5) mg/dl Est GFR ( Amer) Est GFR (Non-Af Amer) Random Glucose (70-110) mg/dL Hemoglobin A1c (4.2-6.5) % Calcium (8.4-10.5) mg/dL Phosphorus (2.5-4.5) mg/dL Magnesium (1.7-2.2) mg/dL Total Bilirubin (0.2-1.3) mg/dL Direct Bilirubin (0.0-0.4) mg/dL AST (17-59) U/L ALT (7-56) U/L Alkaline Phosphatase (38-126) U/L Total Creatine Kinase (35-230) U/L CK-MB (CK-2) (0.0-3.6) ng/mL CK-MB (CK-2) % (2.5-3.0) % Troponin I ng/mL Total Protein (5.8-8.3) g/dL Albumin (3.0-4.8) g/dL Globulin gm/dL Albumin/Globulin Ratio (1.1-1.8) Triglycerides (35-160) mg/dL Cholesterol (130-200) mg/dL LDL Cholesterol Direct (0-129) mg/dL HDL Cholesterol (29-60) mg/dL 25-OH Vitamin D Total (30.0-100.0) NG/ML Free T4 (0.78-2.19) ng/dL Thyroxine (T4) (5.5-11.0) ug/dL TSH 3rd Generation (0.46-4.68) mIU/mL Urine Color Yellow (YELLOW) Urine Appearance Clear (CLEAR) Urine pH 7.0 (4.7-8.0) Ur Specific [place] 1.010 (1.005-1.035) Urine Protein Negative (<30 mg/dL) mg/dL Urine Glucose (UA) Negative (NEGATIVE) mg/dL Urine Ketones Negative (NEGATIVE) mg/dL Urine Blood Large H (NEGATIVE) Urine Nitrate Negative (NEGATIVE) Urine Bilirubin Negative (NEGATIVE) Urine Urobilinogen 0.2 (<1 E.U./dL) E.U./dL Ur Leukocyte Esterase Negative (NEGATIVE) Gina/uL Urine RBC 10 - 15 (0-2) /hpf Urine WBC 0 - 2 (0-6) /hpf Ur Epithelial Cells None (0-5) /hpf Urine Bacteria Small (NEG) Urine Opiates Screen (NEGATIVE) Urine Methadone Screen (NEGATIVE) Ur Barbiturates Screen (NEGATIVE) Ur Phencyclidine Scrn (NEGATIVE) Ur Amphetamines Screen (NEGATIVE) U Benzodiazepines Scrn (NEGATIVE) U Oth Cocaine Metabols (NEGATIVE) U Cannabinoids Screen (NEGATIVE) Laboratory Results - last 24 hr 02/18/18 02/18/18 02/19/18 20:29 20:29 05:10 WBC 12.4 H RBC 5.01 Hgb 14.8 Hct 42.0 MCV 83.8 MCH 29.5 MCHC 35.2 RDW 13.2 Plt Count 233 MPV 10.8 Gran % 76.6 H Lymph % (Auto) 13.5 L [place] % (Auto) 9.4 H Eos % (Auto) 0.3 L Baso % (Auto) 0.2 Gran # 9.47 H Lymph # (Auto) 1.7 [place] # (Auto) 1.2 H Eos # (Auto) 0.0 Baso # (Auto) 0.02 Sodium Potassium Chloride Carbon Dioxide Anion Gap BUN Creatinine Est GFR ( Amer) Est GFR (Non-Af Amer) Random Glucose Hemoglobin A1c Calcium Phosphorus Magnesium Total Bilirubin Direct Bilirubin AST ALT Alkaline Phosphatase Total Creatine Kinase CK-MB (CK-2) CK-MB (CK-2) % Troponin I Total Protein Albumin Globulin Albumin/Globulin Ratio Triglycerides Cholesterol LDL Cholesterol Direct HDL Cholesterol 25-OH Vitamin D Total Free T4 Thyroxine (T4) TSH 3rd Generation Urine Color Yellow Urine Appearance Clear Urine pH 7.0 Ur Specific [place] 1.010 Urine Protein Negative Urine Glucose (UA) Negative Urine Ketones Negative Urine Blood Large H Urine Nitrate Negative Urine Bilirubin Negative Urine Urobilinogen 0.2 Ur Leukocyte Esterase Negative Urine RBC 10 - 15 Urine WBC 0 - 2 Ur Epithelial Cells None Urine Bacteria Small Urine Opiates Screen Negative Urine Methadone Screen Negative Ur Barbiturates Screen Negative Ur Phencyclidine Scrn Negative Ur Amphetamines Screen Negative U Benzodiazepines Scrn Positive H U Oth Cocaine Metabols Negative U Cannabinoids Screen Positive H 02/19/18 02/19/18 02/19/18 05:10 05:10 05:10 WBC RBC Hgb Hct MCV MCH MCHC RDW Plt Count MPV Gran % Lymph % (Auto) [place] % (Auto) Eos % (Auto) Baso % (Auto) Gran # Lymph # (Auto) [place] # (Auto) Eos # (Auto) Baso # (Auto) Sodium 143 Potassium 4.1 Chloride 105 Carbon Dioxide 29 Anion Gap 13 BUN 10 Creatinine 0.7 L Est GFR ( Amer) > 60 Est GFR (Non-Af Amer) > 60 Random Glucose 111 H Hemoglobin A1c 5.3 Calcium 8.9 Phosphorus 3.8 Magnesium 2.1 Total Bilirubin 0.4 Direct Bilirubin 0.0 AST 685 H D ALT 161 H Alkaline Phosphatase 41 Total Creatine Kinase 5520 H CK-MB (CK-2) 208.0 H CK-MB (CK-2) % 3.8 H Troponin I 166.00 H* D Total Protein 7.0 Albumin 4.3 Globulin 2.7 Albumin/Globulin Ratio 1.6 Triglycerides 173 H Cholesterol 185 LDL Cholesterol Direct 114 HDL Cholesterol 39 25-OH Vitamin D Total Free T4 0.91 Thyroxine (T4) 6.5 TSH 3rd Generation 2.53 Urine Color Urine Appearance Urine pH Ur Specific [place] Urine Protein Urine Glucose (UA) Urine Ketones Urine Blood Urine Nitrate Urine Bilirubin Urine Urobilinogen Ur Leukocyte Esterase Urine RBC Urine WBC Ur Epithelial Cells Urine Bacteria Urine Opiates Screen Urine Methadone Screen Ur Barbiturates Screen Ur Phencyclidine Scrn Ur Amphetamines Screen U Benzodiazepines Scrn U Oth Cocaine Metabols U Cannabinoids Screen 02/19/18 05:10 WBC RBC Hgb Hct MCV MCH MCHC RDW Plt Count MPV Gran % Lymph % (Auto) [place] % (Auto) Eos % (Auto) Baso % (Auto) Gran # Lymph # (Auto) [place] # (Auto) Eos # (Auto) Baso # (Auto) Sodium Potassium Chloride Carbon Dioxide Anion Gap BUN Creatinine Est GFR ( Amer) Est GFR (Non-Af Amer) Random Glucose Hemoglobin A1c Calcium Phosphorus Magnesium Total Bilirubin Direct Bilirubin AST ALT Alkaline Phosphatase Total Creatine Kinase CK-MB (CK-2) CK-MB (CK-2) % Troponin I Total Protein Albumin Globulin Albumin/Globulin Ratio Triglycerides Cholesterol LDL Cholesterol Direct HDL Cholesterol 25-OH Vitamin D Total 23.4 L Free T4 Thyroxine (T4) TSH 3rd Generation Urine Color Urine Appearance Urine pH Ur Specific [place] Urine Protein Urine Glucose (UA) Urine Ketones Urine Blood Urine Nitrate Urine Bilirubin Urine Urobilinogen Ur Leukocyte Esterase Urine RBC Urine WBC Ur Epithelial Cells Urine Bacteria Urine Opiates Screen Urine Methadone Screen Ur Barbiturates Screen Ur Phencyclidine Scrn Ur Amphetamines Screen U Benzodiazepines Scrn U Oth Cocaine Metabols U Cannabinoids Screen EKG/Cardiology Studies: Cardiology / EKG Studies 02/19/18 02:30 EKG [ELECTROCARDIOGRAM] Stat Comment: Reason For Exam: EKG changes PRE OP:: N Does Patient Have a Pacemaker?: No 02/19/18 07:00 ELECTROCARDIOGRAM DAILY Comment: Reason For Exam: STEMI 02/20/18 07:00 ELECTROCARDIOGRAM DAILY Comment: Reason For Exam: STEMI 02/21/18 07:00 ELECTROCARDIOGRAM DAILY Comment: Reason For Exam: STEMI Critical Care Progress Note - Nutrition Nutrition: Nutrition Category Date Time Status Heart Healthy Diet [DIET] Diets 02/18/18 Dinner Active Assessment/Plan - Assessment and Plan (Free Text) Assessment: Patient seen and examined on rounds with resident, agree with note with following additions/exceptions: Patient is 38yo male a/w STEMI, VTACH, s/p DIVYA to RCA, and LAD, 2VD. Currently afebrile, BP stable, doing well Cardiology following OFF amio drip OFF Integrillin Drip Cont with ASA, Brillinta, Statin, BB Follow up ECHO Follow up HgbA1C, Lipid Panel DC IVF Follow up cardiology Transfer to telemetry
[2018-02-19] MEDS ORDERED: Enoxaparin 40 mg Syringe SC SCH (11:45)
--- NOTE | 2018-02-19 12:13 | CP.PCM.PN ---
<Shonna Mckinnon - Last Filed: 02/19/18 14:57> Subjective - Date & Time of Evaluation Date of Evaluation: 02/19/18 Time of Evaluation: 12:12 - Subjective Subjective: Medicine Progress Note - Dr Duvall Service: Patient seen and examined at bedside. Per nursing no acute events overnight. Amiodarone and Integrilin drips discontinued. Patient is doing well, feels better. Offers no complaints. Tolerating diet. Denies headaches, dizziness, cp, palpitations, sob, abdominal pain, urinary symptoms. Objective - Vital Signs/Intake and Output Vital Signs (last 24 hours): Temp Pulse Resp BP Pulse Ox 98.4 F 55 L 19 112/68 98 02/19/18 08:00 02/19/18 10:30 02/19/18 10:30 02/19/18 08:00 02/19/18 10:30 - Medications Medications: Current Medications Aspirin (Aspirin) 325 mg PO DAILY [facility] Last Admin: 02/19/18 09:25 Dose: 325 mg Atorvastatin Calcium (Lipitor) 40 mg PO DIN [facility] Last Admin: 02/18/18 21:35 Dose: 40 mg Enoxaparin Sodium (Lovenox) 40 mg SC DAILY [facility] PRN Reason: Protocol Sodium Chloride (Sodium Chloride 0.9%) 1,000 mls @ 100 mls/hr IV .Q10H [facility] Stop: 02/19/18 14:00 Last Admin: 02/19/18 04:42 Dose: 100 mls/hr Metoprolol Tartrate (Lopressor) 25 mg PO BRKDIN [facility] Last Admin: 02/19/18 07:30 Dose: Not Given Pantoprazole Sodium (Protonix Ec Tab) 40 mg PO 0600,1600 [facility] Last Admin: 02/19/18 05:50 Dose: 40 mg Ticagrelor (Brilinta) 90 mg PO BID [facility] Last Admin: 02/19/18 09:25 Dose: 90 mg - Labs Labs: 02/19/18 05:10 02/19/18 05:10 PT 11.5 SECONDS (9.4-12.5) 02/18/18 17:45 INR 1.01 (0.93-1.08) 02/18/18 17:45 APTT 27.9 Seconds (25.1-36.5) 02/18/18 17:45 - Constitutional Appears: Non-toxic, No Acute Distress - Head Exam Head Exam: ATRAUMATIC, NORMAL INSPECTION, NORMOCEPHALIC - Eye Exam Eye Exam: EOMI, Normal appearance Pupil Exam: NORMAL ACCOMODATION - ENT Exam ENT Exam: Mucous Membranes Moist - Neck Exam Neck Exam: Full ROM - Respiratory Exam Respiratory Exam: Clear to Ausculation Bilateral, NORMAL BREATHING PATTERN. absent: Rales, Rhonchi, Wheezes - Cardiovascular Exam Cardiovascular Exam: REGULAR RHYTHM, +S1, +S2 - GI/Abdominal Exam GI & Abdominal Exam: Soft, Normal Bowel Sounds. absent: Guarding, Rigid, Tenderness - Extremities Exam Additional comments: Right groin access site clean, no bleeding, hematoma, some petechia noted on anterior aspect of upper thigh that is tender to palpation - Back Exam Back Exam: NORMAL INSPECTION - Neurological Exam Neurological Exam: Alert, Awake, Oriented x3 - Psychiatric Exam Psychiatric exam: Normal Affect, Normal Mood - Skin Skin Exam: Dry, Normal Color, Warm Assessment and Plan - Assessment and Plan (Free Text) Assessment: A/P: Patient is a 38 year old male with no significant past medical history who was transferred [place] [facility] [place] chest discomfort and syncopal episode, noted to have STEMI on EKG. Patient found to be in VTACH in the [facility] [place] [place] requiring defibrillation. S/P cardiac catherization. STEMI -Stable, afebrile -Presented with acute inferior wall ID complicated by 3 episodes of VTACH requiring defibrillation -Amiodarone and Integrilin drips discontinued -S/P DIVYA at RCA and LAD via femoral access -Will downgrade to tele and monitor for arrhythmias for 24-48 hours -Troponin 166 today, will monitor daily -HgA1C 5.3, Thyroid studies within normal limits -F/U echocardiogram -Continue ASA and Brilinta -Metoptolol 25mg PO BID -Cardiology on consult, help appreciated Dyslipidemia -Triglycerides 173 -Continue Lipitor 40mg HS Transaminitis -AST/ALT: 685/161 -Hep panel ordered -Could be medication induced as patient was on Amiodarone -Avoid nephrotoxic agents Syncopal episode -Patient with questionable seizure like activity -CT head negative for acute pathology -EEG completed, f/u read -Neurology on consult, help appreciated -Seizure precautions Substance abuse -UTOX positive for cannabinoids, benzos -Cessation advised Leukocytosis -s/p cardiac cath yesterday -CXR showed no active disease -WBC 12.4, likely reactive -Will continue to monitor Hypokalemia -Potassium 3.3 on admission -Continue to monitor Vitamin D Deficiency -Vitamin D 23.4 -Cholecalceiferol 4,000 units daily GI/DVT ppx: Protonix 40mg PO BID Lovenox 40mg SC daily Plan discussed with Dr Eloina Mckinnon DO PGY-1 <Eric Duvall U - Last Filed: 02/19/18 15:43> Objective - Vital Signs/Intake and Output Vital Signs (last 24 hours): Temp Pulse Resp BP Pulse Ox 98.4 F 82 16 116/60 99 02/19/18 08:00 02/19/18 13:03 02/19/18 12:30 02/19/18 13:03 02/19/18 12:00 - Medications Medications: Current Medications Aspirin (Aspirin) 325 mg PO DAILY [facility] Last Admin: 02/19/18 09:25 Dose: 325 mg Atorvastatin Calcium (Lipitor) 40 mg PO DIN [facility] Last Admin: 02/18/18 21:35 Dose: 40 mg Metoprolol Tartrate (Lopressor) 25 mg PO BRKDIN [facility] Last Admin: 02/19/18 07:30 Dose: Not Given Pantoprazole Sodium (Protonix Ec Tab) 40 mg PO 0600,1600 [facility] Last Admin: 02/19/18 05:50 Dose: 40 mg Ticagrelor (Brilinta) 90 mg PO BID [facility] Last Admin: 02/19/18 09:25 Dose: 90 mg Vitamin D (Vitamin D 400 Intl Units Tab) 400 intlu PO DAILY [facility] - Labs Labs: 02/19/18 05:10 02/19/18 05:10 PT 11.5 SECONDS (9.4-12.5) 02/18/18 17:45 INR 1.01 (0.93-1.08) 02/18/18 17:45 APTT 27.9 Seconds (25.1-36.5) 02/18/18 17:45 Attending/Attestation - Attestation I have personally seen and examined this patient.: Yes I have fully participated in the care of the patient.: Yes I have reviewed all pertinent clinical information, including history, physical exam and plan: Yes Notes (Text): Please see/read my dictated notes.
--- NOTE | 2018-02-19 13:56 | CARD ---
APPROVED REPORT EKG Measurement Heart [id number] [id number] <Conclusion> Sinus rhythm with idioventricular rhythm Inferior infarct, possibly acute ACUTE ME Abnormal ECG
--- NOTE | 2018-02-19 14:01 | CARD ---
APPROVED REPORT EKG Measurement Heart [id number] [id number] <Conclusion> Sinus rhythm with idioventricular rhythm and fusion complexes Acute Infero-lateral infarct, Abnormal ECG
--- NOTE | 2018-02-19 14:03 | CARD ---
APPROVED REPORT EKG Measurement Heart [id number] <Conclusion> Accelarated idioventricular rhythm Abnormal ECG
--- NOTE | 2018-02-19 14:11 | CARD ---
APPROVED REPORT EKG Measurement Heart [id number] [place] 170P44 [id number] <Conclusion> Normal sinus rhythm Inferior infarct, possibly acute ACUTE [place] Abnormal ECG
[2018-02-19] MEDS: Amiodarone 360 mg/D5W 200 ml 360 MG/200 ML BAG IV SCH (14:47)
[2018-02-19 16:20] LABS: HEPATITIS B SURFACE AG Negative (NEGATIVE)
[2018-02-19 16:25] LABS: HEPATITIS A IGM NEGATIVE (NEGATIVE); HEPATITIS B CORE AB NEGATIVE (NEGATIVE)
[2018-02-19 16:37] LABS: HEPATITIS C ANTIBODY NEGATIVE (NEGATIVE)
[2018-02-19 16:48] VITALS: RESP 20
--- NOTE | 2018-02-19 19:12 | CON ---
DATE: 02/19/2018 NEUROLOGY CONSULTATION CHIEF COMPLAINT: Questionable seizure activity. HISTORY OF PRESENT ILLNESS: This is a 38-year-old man with no significant past medical history except for family history of hypercholesterolemia, who came to the hospital for chest pain and found to have a STEMI, therefore, status post cardiac catheterization and had a drug-eluting stent placed in the right coronary artery as well as the left anterior descending artery via femoral access and after that, had a seizure-like activity, but no generalized activity. He has never had any seizures in the past. No history of trauma to the brain. His CAT scan of the head showed no acute intracranial abnormality. His EEG is normal. He has transient drop in systolic and diastolic blood pressures after reviewing his vital signs. Currently, he is doing well, eating and following commands, moving all extremities, and talking without any aphasia. PAST MEDICAL HISTORY: Nonsignificant except for family history of premature cardiac event. FAMILY HISTORY: Noncontributory. SOCIAL HISTORY: Social drinker, former smoker. No illicit drug use. REVIEW OF SYSTEMS: A 14-point review of systems negative except as per the HPI. MEDICATIONS: Reviewed by nurses' reconciliation sheet. PHYSICAL EXAMINATION: GENERAL: The patient is sitting up in bed, in no acute distress. VITAL SIGNS: Temperature 98.4, pulse rate of 88, blood pressure 112/71, respiratory rate 20, oxygen saturation 99% on room air. HEENT: Head is atraumatic and normocephalic. PERRLA. Extraocular muscles intact. NECK: Supple. No JVD. No adenopathy noted. LUNGS: Clear to auscultation. No adventitious sounds. HEART: S1, S2. Normal rate and rhythm. No murmur, rubs, or gallops. ABDOMEN: Soft, nontender, and nondistended. Bowel sounds are present. EXTREMITIES: No clubbing. No cyanosis. Peripheral pulses are 2+ felt bilaterally. NEUROLOGIC: The patient is alert and oriented to person, place, month, and year. Speech is fluent without any errors. Cranial nerves II through XII intact. Motor: Moves all extremities equally. Toes are downgoing bilaterally. Sensory: Light touch, pinprick, proprioception, and vibration are intact. DTRs are 2+ throughout. Coordination: [id number] intact. No dysmetria noted. Gait is deferred for now. LABORATORY DATA: Sodium 143, potassium 4.1, chloride 105, carbon dioxide 29, BUN of 10, creatinine 0.7, random glucose 111, A1c 5.3. ASSESSMENT AND PLAN: This is a 38-year-old man who came with chest pain and found to have ST-elevation myocardial infarction, status post drug-eluting stent in the right coronary artery and left anterior descending artery, had a questionable seizure like activity after the event, found to have transient systolic and diastolic drops in blood pressure. EEG is normal. CAT scan of the head show no intracranial abnormality. At this time, he likely had a transient cerebral hypoperfusion causing hypoxia leading to seizure-like events, which is likely provoked. At this time, would recommend: 1. No antiepileptic drugs at this time. 2. Keep his systolic blood pressures between 120s to 130s and diastolics 70 to 80s and avoid hypotensive drugs. 3. Monitor electrolytes and correct accordingly. 4. Continue with his aspirin, Brilinta, and Lipitor for cardiac as well as stroke prevention. He is clinically stable from my standpoint. Thank you for this consult. Donald Garcia MD
[2018-02-19] MEDS ORDERED: Ergocalciferol 50,000 Intl Units Cap PO SCH (21:00)
--- NOTE | 2018-02-19 23:32 | PN ---
DATE: 02/19/2018 LOCATION: The patient is seen in the ICU, bed 1. SUBJECTIVE: The patient is lying in the bed with the patient's family at bedside. The patient denies any chest pain, denies any syncope, denies any nausea, denies vomiting. Overnight nurses' notes were reviewed. No adverse events were documented except that the patient's friend reported that when the patient was initially brought to the emergency room and while the patient was in the vehicle, the patient had some seizure-like activity when the patient passed out. PHYSICAL EXAMINATION: VITAL SIGNS: T-max is 98.9 to 98.4. Telemetry shows sinus rhythm. No ventricular arrhythmias noted. Blood pressure 107/73, 112/64. 114/59, 121/57, 134/74, 112/68. 112/71,116/60, respirations 20, O2 sat 99%. GENERAL: The patient was seen lying in the bed. HEENT: Head examination, normocephalic, atraumatic. HEENT shows pink conjunctivae, anicteric sclerae, no oropharyngeal lesion, dry oral mucosa. No neck rigidity. CHEST: Symmetrical. LUNGS: Shows occasional rhonchi in the upper lung teixeira. CARDIOVASCULAR: S1 and S2, regular rhythm. ABDOMEN: Soft. Positive bowel sounds. Right groin dressing area is intact. No hematoma. No bleeding noted. EXTREMITIES: Shows positive palpable pulses. No pitting edema. No calf tenderness. No Marina sign. NEUROLOGIC: The patient is alert, awake, oriented x3. Cranial nerves II through XII intact and limited. Gait examination not tested. MUSCULOSKELETAL: Shows a body mass index of 34. DIAGNOSTICS: WBC 12.4, hemoglobin and hematocrit 14.8 and 42, platelet 233. Granulocytes 77% segs. Sodium 143, potassium 4.1, chloride 105, CO2 of 29, anion gap 13, BUN 10, creatinine 0.7, GFR greater than 60, glucose 111. Hemoglobin A1c of 5.3. Calcium 8.9, phosphorus 3.8, magnesium 2.1, AST 685, ALT 161, CPK is 5520, MB percent is 3.8, troponin has peaked up to 166, cholesterol 185, triglyceride 173, LDL 114, HDL 39, vitamin D 25-hydroxy 23.4. Urine drug screen positive for benzos and cannabinoids. Hepatitis A, B, C serologies negative. The patient had a head CT was done because the patient's family noticed that when the patient passed out yesterday, the patient had some seizure-like activity. CAT scan of the head was negative. The patient's EKG from today shows sinus rhythm with idioventricular rhythm and PVCs and acute inferior wall myocardial infarction with an ST elevation in II, III, aVF. EKG also shows acute inferolateral. IMPRESSION AND PLAN: 1. Status pose code heart and acute inferior wall ST elevation myocardial infarction. 2. Syncope with questionable seizure-like activity. 3. Acute ST elevation myocardial infarction complicated by ventricular tachycardia, status post defibrillation x3. 4. Left ventricular ejection fraction of 50%. 5. Occluded posterolateral branch of the posterior descending artery. 6. A 80-90% stenosis of the mid left anterior descending artery. 7. Status post successful emergency angioplasty and drug-eluting stent placement of the occluded right coronary artery and percutaneous transluminal coronary angioplasty and stent placement of the mid left anterior descending artery. 8. Transient hypotension. 9. Leukocytosis with granulocytosis. 10. Hypokalemia. 11. Transaminitis secondary to acute ST elevation myocardial infarction. 12. Possible rhabdomyolysis and elevated CPK secondary to acute ST elevation myocardial infarction and elevated troponin. 13. Hypertriglyceridemia, hypercholesterolemia. 14. Hypovitaminosis D. 15. Microscopic hematuria. 16. Urine drug screen positive for benzos and cannabinoids. 17. Acute inferolateral myocardial infarction with idioventricular rhythm. 18. Acute inferior wall myocardial infarction with idioventricular rhythm. 19. Double vessel coronary artery disease. 20. Accelerated idioventricular rhythm. 1. Acute ST elevations inferolateral myocardial infarction with ST elevation in II, III, aVF and V6. 2. Ventricular tachycardia cardiac arrest. 3. Syncope secondary to acute ST elevation myocardial infarction and ventricular tachycardia cardiac arrest. 4. Status post code heart. 5. Status post percutaneous transluminal angioplasty and stent placement of the right coronary artery and left anterior descending artery. 6. Morbid obesity with elevated body mass index. 7. Hypokalemia. 8. Increased anion gap, possible increased anion gap metabolic acidosis. 9. Hyperglycemia. 10. Transaminitis. 11. Microscopic hematuria. 12. History of marijuana use with urine drug screen positive for cannabinoids and benzodiazepines. 13. Multivessel coronary artery disease. PLAN: At this time, the patient was seen by photoengraving apprentice, recommend transfer out of the ICU. The patient has been ordered serial labs, serial CPK, LFTs, CBC ordered. Current consultation with Cardiology and Urology. CURRENT MEDICATIONS: 1. Aspirin 325 daily. 2. Brilinta 90 mg twice a day. 3. Drisdol 50,000 weekly. 4. Lipitor 40 mg daily. 5. Lopressor 25 twice a day. 6. Protonix 40 mg daily. 7. IV fluid started at 0.9 normal saline at 125 mL an hour. The patient has been ordered oxygen nasal cannula. The patient has been ordered repeat EKG. The patient has been ordered Lexiscan thallium by cardiology. The patient is ordered liquid diet. The patient has been ordered SCDs, ATUL stockings. At present, the patient is awaiting for transfer out of the ICU. The patient's further management will be as per the patient's clinical condition, hemodynamic status and as per the patient's response to therapeutic intervention, as per the patient's diagnostic test results and as per the recommendation. Time spent in the entire management more than 35 minutes. Dictated and electronically signed, not read. Eric Duvall MD RACHEAL
[2018-02-20] MEDS: Pantoprazole 40 mg EC Tab PO SCH (05:21)
[2018-02-20] MEDS: Sodium Chloride 0.9% 1,000 ML IV SCH ×3 (05:23→23:41)
[2018-02-20 07:13] LABS: BASO # 0.02 K/mm3 (0.0-2.0); BASO % 0.2 % (0.0-3.0); EOS # 0.1 (0.0-0.7); EOS % 0.7 % (1.5-5.0); GRAN # 8.77 (1.4-6.5); LYMPH # 1.8 (1.2-3.4); LYMPH % 14.9 % (22.0-35.0); MEAN CELL VOLUME 84.9 fl (80.0-105.0); MEAN CORPUSCULAR HGB CONC 34.1 g/dl (31.0-37.0); MONO # 1.5 (0.1-0.6); MONO % 12.2 % (1.0-6.0); RBC 4.83 10^6/uL (3.5-6.1); RED CELL DISTRIBUTION WIDTH 13.2 % (11.5-14.5); WHITE BLOOD COUNT 12.2 10^3/ul (4.5-11.0)
[2018-02-20 07:34] LABS: ALB/GLOB RATIO 1.5 (1.1-1.8); ALBUMIN 4.2 g/dL (3.0-4.8); ALT/SGPT 132 U/L (7-56); AST/SGOT 240 U/L (17-59); BLOOD UREA NITROGEN 12 mg/dL (7-21); CALCIUM 9.1 mg/dL (8.4-10.5); GFR AFRICAN-AMERICAN > 60; GFR NON-AFRICAN AMERICAN > 60
[2018-02-20 07:53] LABS: CK MB% 1.8 % (2.5-3.0); CK-MB 20.9 ng/mL (0.0-3.6)
--- NOTE | 2018-02-20 09:27 | EEG ---
DATE: 02/19/2018 DIAGNOSIS: Seizure. CONDITION OF THE RECORDING: Drowsy. MEDICATIONS: Reviewed by nurse per reconciliation sheet. INTERPRETATION: This is a 16-channel international recording. Background activity was composed of 8 to 9 cycles per second. There was a small amount of beta activity of 16 to 20 cycles per second seen in this recording. There was small amount of theta activity of 5 to 7 cycles per second seen in this tracing. Drowsiness was characterized by mixed beta and theta activities. The sleep was characterized by vertex transient waves, sleep spindles and bilateral slowing. Photic stimulation showed no changes in the tracing. No paroxysmal activities noted in this recording. CONCLUSION: This is a normal drowsy EEG. No evidence of any epileptiform activity. Please clinically correlate. Donald Garcia MD
[2018-02-20] MEDS ORDERED: Cholecalciferol 400 Intl Units Tab PO SCH (10:00)
--- NOTE | 2018-02-20 10:33 | PN ---
DATE: 02/20/2018 CARDIOLOGY FOLLOWUP SUBJECTIVE: The patient is chest pain free. No ventricular tachycardia. No arrhythmias noted. PHYSICAL EXAMINATION: VITAL SIGNS: Blood pressure is 110/74, the heart rate is in the 60s, normal sinus rhythm. NECK: Negative JVD. LUNGS: Without rales. HEART: Reveals S1, S2. EXTREMITIES: Without edema. LABORATORY DATA: Hemoglobin is 14. Chemistries: BUN and creatinine, LFTs are on decreasing trend. IMPRESSION: 1. Acute inferior wall myocardial infarction. 2. Ventricular tachycardia x3. 3. Coronary artery disease. 4. History of percutaneous transluminal coronary angioplasty and stent of a right coronary artery and left anterior descending. 5. Hypercholesterolemia. PLAN: Given these findings, the patient's elevated liver enzymes are likely due to his myocardial infarction, not to liver damage. The patient is for low-level stress test today. Robinson Ward MD
--- NOTE | 2018-02-20 12:54 | CP.PCM.PN ---
<Shonna Mckinnon - Last Filed: 02/20/18 13:51> Subjective - Date & Time of Evaluation Date of Evaluation: 02/20/18 Time of Evaluation: 12:51 - Subjective Subjective: Medicine Progress Note - Dr Duvall: Patient seen and examined at bedside. Per nursing, no acute events overnight. Patient for Stress test this morning. Patient is doing well, offers no complaints at time. Ambulating and tolerating diet. Denies headaches, dizziness , cp palpitations, sob, abdominal pain, urinary symptoms. Objective - Vital Signs/Intake and Output Vital Signs (last 24 hours): Temp Pulse Resp BP Pulse Ox 99.1 F 62 20 110/74 99 02/20/18 06:00 02/20/18 06:00 02/20/18 06:00 02/20/18 06:00 02/20/18 06:00 Intake and Output: 02/20/18 02/20/18 06:59 18:59 Intake Total 1370 Balance 1370 - Medications Medications: Current Medications Aspirin (Aspirin) 325 mg PO DAILY [facility] Last Admin: 02/20/18 09:55 Dose: 325 mg Atorvastatin Calcium (Lipitor) 40 mg PO DIN [facility] Last Admin: 02/19/18 17:56 Dose: 40 mg Ergocalciferol (Drisdol 50,000 Intl Units Cap) 1 cap PO Q7D [facility] Last Admin: 02/19/18 21:31 Dose: 1 cap Sodium Chloride (Sodium Chloride 0.9%) 1,000 mls @ 125 mls/hr IV .Q8H [facility] Stop: 02/23/18 04:29 Last Admin: 02/20/18 05:23 Dose: 125 mls/hr Pantoprazole Sodium (Protonix Ec Tab) 40 mg PO 0600,1600 [facility] Last Admin: 02/20/18 05:21 Dose: 40 mg Ticagrelor (Brilinta) 90 mg PO BID [facility] Last Admin: 02/20/18 09:55 Dose: 90 mg - Labs Labs: 02/20/18 06:30 02/20/18 06:30 PT 11.5 SECONDS (9.4-12.5) 02/18/18 17:45 INR 1.01 (0.93-1.08) 02/18/18 17:45 APTT 27.9 Seconds (25.1-36.5) 02/18/18 17:45 - Constitutional Appears: Well, No Acute Distress - Head Exam Head Exam: ATRAUMATIC, NORMAL INSPECTION, NORMOCEPHALIC - Eye Exam Eye Exam: EOMI, Normal appearance Pupil Exam: NORMAL ACCOMODATION - ENT Exam ENT Exam: Mucous Membranes Moist - Neck Exam Neck Exam: Full ROM - Respiratory Exam Respiratory Exam: Clear to Ausculation Bilateral, NORMAL BREATHING PATTERN. absent: Rales, Rhonchi, Wheezes - Cardiovascular Exam Cardiovascular Exam: REGULAR RHYTHM, +S1, +S2 - GI/Abdominal Exam GI & Abdominal Exam: Soft, Normal Bowel Sounds. absent: Guarding, Rigid, Tenderness - Rectal Exam Rectal Exam: Deferred - Extremities Exam Additional comments: Right groin: tender to palpation; ecchymosis unchanged - Back Exam Back Exam: NORMAL INSPECTION - Neurological Exam Neurological Exam: Alert, Awake, Oriented x3 - Psychiatric Exam Psychiatric exam: Normal Affect, Normal Mood - Skin Skin Exam: Dry, Normal Color, Warm Assessment and Plan - Assessment and Plan (Free Text) Assessment: A/P: Patient is a 38 year old male with no significant past medical history who [place] [facility] [place] and syncopal episode, noted to have STEMI on EKG. Patient found to be in VTACH in [place] [facility] [place] defibrillation. S/P cardiac catherization. STEMI -Stable, afebrile -Presented with acute inferior wall RI complicated by 3 episodes of VTACH requiring defibrillation -Amiodarone and Integrilin drips discontinued -S/P DIVYA at RCA and LAD via femoral access -Troponin 166 trending down, 38 today -HgA1C 5.3, Thyroid studies within normal limits -Echocardiogram completed, official report pending -Continue ASA and Brilinta -Patient with ecchymosis in the groin region and tenderness; recommending groin dressing -Metoptolol 25mg PO BID discontinued -Cardiology on consult, help appreciated Dyslipidemia -Triglycerides 173 -Continue Lipitor 40mg HS Transaminitis -AST/ALT: 240/132. trending down -Hep panel negative -Could be medication induced as patient was on Amiodarone -Avoid nephrotoxic agents Syncopal episode -Patient with questionable seizure like activity -CT head negative for acute pathology -EEG completed, normal -Patient cleared from neurology standpoint -Neurology on consult, help appreciated Rhabdomyolysis -CPK 5,5520 on yesterday trending down -Continue IV fluid hydration -Repeat CPK tomorrow Substance abuse -UTOX positive for cannabinoids, benzos -Cessation advised Leukocytosis -s/p cardiac cath -CXR showed no active disease -WBC 12.2, likely reactive -Will continue to monitor Hypokalemia -Potassium 3.3 on admission -Potassium 4.1 today -Continue to monitor Vitamin D Deficiency -Vitamin D 23.4 -Ergocalceiferol 50,000 units weekly GI/DVT ppx: Protonix 40mg PO BID SCDs Plan discussed with Dr Eloina Mckinnon DO PGY-1 <Eric Duvall U - Last Filed: 02/21/18 13:58> Objective - Vital Signs/Intake and Output Vital Signs (last 24 hours): Temp Pulse Resp BP Pulse Ox 97.8 F 65 20 130/78 96 02/21/18 05:44 02/21/18 05:44 02/21/18 05:44 02/21/18 05:44 02/21/18 05:44 Intake and Output: 02/21/18 02/21/18 06:59 18:59 Intake Total 1620 Balance 1620 - Labs Labs: 02/21/18 06:30 02/21/18 06:30 PT 11.5 SECONDS (9.4-12.5) 02/18/18 17:45 INR 1.01 (0.93-1.08) 02/18/18 17:45 APTT 27.9 Seconds (25.1-36.5) 02/18/18 17:45 Attending/Attestation - Attestation I have personally seen and examined this patient.: Yes I have fully participated in the care of the patient.: Yes I have reviewed all pertinent clinical information, including history, physical exam and plan: Yes Notes (Text): Please see/read my dictated notes.
--- NOTE | 2018-02-20 16:43 | CARD ---
APPROVED REPORT EKG Measurement Heart [id number] [place] [id number] <Conclusion> Normal sinus rhythm Inferior infarct, age undetermined Abnormal ECG
--- NOTE | 2018-02-20 23:34 | PN ---
DATE: 02/20/2018 CARDIOLOGY FOLLOWUP SUBJECTIVE: The patient underwent a low-level stress test to stage III. No angina noted. No shortness of breath noted. No ventricular arrhythmias noted. Given these findings, the patient is stable post emergency PTCA and stent for his acute inferior wall OK. Given these findings, from a cardiac perspective, the patient can be discharged. Follow up and instructions have been given to the patient in detail. Robinson Ward MD
--- NOTE | 2018-02-21 01:21 | PN ---
DATE: 02/20/2018 LOCATION: The patient is seen in room 274, bed 1. SUBJECTIVE: Patient is out of bed to chair, ambulating with his on the floor and in the room. Patient complains of some right groin discomfort. Patient denies any chest pain. Denies shortness of breath. Denies nausea. Denies vomiting. Denies diarrhea. Denies hemoptysis. Denies bleeding. Denies syncope. Denies loss of consciousness. PHYSICAL EXAMINATION: VITAL SIGNS: Patient's T-max is 99.6 to 98.4. Telemetry shows normal sinus rhythm. Heart rate between 62 to 86. Blood pressure 112/71, 138/89, respirations 20, O2 sat is 99%. GENERAL: Patient was then examined, lying in the bed, in room 274, bed 1. Patient's right groin area shows small deep right inguinal area lump but no hematoma palpable, which is tender to touch. Positive palpable pulses of the femoral area, popliteal, posterior tibial and dorsalis pedis. HEENT: Head examination, normocephalic and atraumatic. HEENT examination shows pink conjunctivae. Anicteric sclerae. No oropharyngeal lesion. NECK: No neck rigidity. CHEST: Kyphosis. LUNGS: Shows no rales, crackles or wheezing. CARDIOVASCULAR: S1, S2. Regular rhythm. ABDOMEN: Soft. Positive bowel sounds. GENITALIA: Male. RECTAL: Deferred. Right groin examination shows a small tender area but no hematoma noted. No pseudoaneurysm noted. VASCULAR: Palpable pulses. MUSCULOSKELETAL: As per the body mass index. NEUROLOGIC: The patient is alert, awake, oriented x3. Cranial nerves II-XII intact. Gait examination limited. DIAGNOSTICS: WBC 12.2, hemoglobin and hematocrit 14 and 41, platelets 203, granulocyte 72% segs. Sodium 142, potassium 4.1, chloride 105, CO2 of 28, BUN 12, creatinine 0.7. Glucose 103, calcium 9.1, phosphorous 3.3, magnesium 2.1, AST 240, ALT 132, CPK 1152. Peak troponin 166, down to 38.8. IMPRESSION AND PLAN: 1. Right groin pain secondary to emergency percutaneous transluminal coronary angioplasty, cardiac catheterization and code heart. 2. Acute ST elevation inferior wall myocardial infarction. 3. Double vessel coronary artery disease. 4. Status post angioplasty with drug-eluting stent placement of the posterior descending artery of the right coronary and left anterior descending artery angioplasty and drug-eluting stent placement. 5. Acute inferior wall ST elevation myocardial infarction. 6. Idioventricular rhythm. 7 Low-grade fever. 8. Leukocytosis with granulocytosis. 9. Transaminitis. 10. Rhabdomyolysis with elevated CPK. 11. Status post syncope. 12. Acute ST elevation myocardial infarction with elevated troponin of 166. 13. Obesity. 14. Elevated body mass index. 15. Hyperlipidemia. 16. Status post ventricular tachycardia cardiac arrest. 1. Status pose code heart and acute inferior wall ST elevation myocardial infarction. 2. Syncope with questionable seizure-like activity. 3. Acute ST elevation myocardial infarction complicated by ventricular tachycardia, status post defibrillation x3. 4. Left ventricular ejection fraction of 50%. 5. Occluded posterolateral branch of the posterior descending artery. 6. A 80-90% stenosis of the mid left anterior descending artery. 7. Status post successful emergency angioplasty and drug-eluting stent placement of the occluded right coronary artery and percutaneous transluminal coronary angioplasty and stent placement of the mid left anterior descending artery. 8. Transient hypotension. 9. Leukocytosis with granulocytosis. 10. Hypokalemia. 11. Transaminitis secondary to acute ST elevation myocardial infarction. 12. Possible rhabdomyolysis and elevated CPK secondary to acute ST elevation myocardial infarction and elevated troponin. 13. Hypertriglyceridemia, hypercholesterolemia. 14. Hypovitaminosis D. 15. Microscopic hematuria. 16. Urine drug screen positive for benzos and cannabinoids. 17. Acute inferolateral myocardial infarction with idioventricular rhythm. 18. Acute inferior wall myocardial infarction with idioventricular rhythm. 19. Double vessel coronary artery disease. 20. Accelerated idioventricular rhythm. 1. Acute ST elevations inferolateral myocardial infarction with ST elevation in II, III, aVF and V6. 2. Ventricular tachycardia cardiac arrest. 3. Syncope secondary to acute ST elevation myocardial infarction and ventricular tachycardia cardiac arrest. 4. Status post code heart. 5. Status post percutaneous transluminal angioplasty and stent placement of the right coronary artery and left anterior descending artery. 6. Morbid obesity with elevated body mass index. 7. Hypokalemia. 8. Increased anion gap, possible increased anion gap metabolic acidosis. 9. Hyperglycemia. 10. Transaminitis. 11. Microscopic hematuria. 12. History of marijuana use with urine drug screen positive for cannabinoids and benzodiazepines. 13. Multivessel coronary artery disease. Patient's echocardiogram was done, the results are pending. Patient had an exercise stress test, the official results of which are pending. Patient's beta-javi was discontinued by the Cardiology. Patient is to be continued on IV fluid. Patient's repeat CPK will be monitored. Patient's repeat lab has been ordered. Patient will be continued on Brilinta 90 mg twice a day, Protonix 40 mg daily, Lipitor 40 mg daily, aspirin 81 mg 325 mg daily. Patient will be encouraged to ambulate. Heavy dressing has been ordered for the right groin area. Patient's repeat labs including the CPK has been ordered for the morning. The patient's CPK is trending downwards and closer to the normal range. Patient will be considered for discharge in a.m. Patient has been updated about his condition, diagnosis, treatment plan, management plan, outpatient follow up, has been explained again to the patient and the patient's at length. Patient and the patient's had been advised to seek out patient cardiac rehab upon discharge. Patient was advised weight loss. Patient was advised strict diet. Patient was advised repeat cholesterol level below the level of the age stratification risk area. Patient was advised outpatient close followup with folder tier and medicine physician and close followup by repeat labs also advised. As mentioned as patient stays stable objectively and subjectively, patient will be considered for discharge in a.m. Dictated and electronically signed, not read. Eric Duvall MD MTDD
[2018-02-21] MEDS: Sodium Chloride 0.9% 1,000 ML IV SCH (05:19)
[2018-02-21 05:45] VITALS: BP 130/78; PULSE 65; TEMP 97.8; O2SAT 96
[2018-02-21 07:07] LABS: BASO # 0.04 K/mm3 (0.0-2.0); BASO % 0.5 % (0.0-3.0); EOS # 0.1 (0.0-0.7); EOS % 1.2 % (1.5-5.0); GRAN # 5.55 (1.4-6.5); GRAN % 66.1 % (50.0-68.0); HEMOGLOBIN 13.6 g/dL (14.0-18.0); LYMPH # 1.6 (1.2-3.4); LYMPH % 19.5 % (22.0-35.0); MEAN CELL VOLUME 85.7 fl (80.0-105.0); MEAN CORPUSCULAR HEMOGLOBIN 29.1 pg (25.0-35.0); MEAN PLATELET VOLUME 11.1 fl (7.0-11.0); MONO # 1.1 (0.1-0.6); MONO % 12.7 % (1.0-6.0); RBC 4.67 10^6/uL (3.5-6.1); RED CELL DISTRIBUTION WIDTH 13.1 % (11.5-14.5); WHITE BLOOD COUNT 8.4 10^3/ul (4.5-11.0)
[2018-02-21 07:29] LABS: ALB/GLOB RATIO 1.4 (1.1-1.8); ALBUMIN 4.1 g/dL (3.0-4.8); ALT/SGPT 95 U/L (7-56); AST/SGOT 118 U/L (17-59); BLOOD UREA NITROGEN 11 mg/dL (7-21); CALCIUM 8.8 mg/dL (8.4-10.5); GFR AFRICAN-AMERICAN > 60; GFR NON-AFRICAN AMERICAN > 60
[2018-02-21 07:46] LABS: CK MB% 0.9 % (2.5-3.0); CK-MB 5.1 ng/mL (0.0-3.6)
--- NOTE | 2018-02-21 11:21 | PN ---
DATE: 02/21/2018 CARDIOLOGY FOLLOWUP SUBJECTIVE: The patient is asymptomatic. PHYSICAL EXAMINATION VITAL SIGNS: Stable. NECK: Negative JVD. LUNGS: Without rales. HEART: Reveals S1 and S2. EXTREMITIES: Without edema. LABORATORY DATA: CPK is markedly down. IMPRESSION: 1. Stable post acute inferior wall myocardial infarction. 2. Status post ventricular tachycardia x3. 3. Status post emergency percutaneous transluminal coronary angioplasty and stent of two vessels. 4. Hypercholesterolemia. PLAN: Given these findings, the patient is stable for discharge. Follow up and instructions have been given to the patient in detail. Robinson Ward MD
--- NOTE | 2018-02-21 12:48 | DS ---
HISTORY OF PRESENT ILLNESS: The patient was in room 274, bed 1. The patient's overnight nurse's notes were reviewed. The patient slept well without any adverse events documented. PHYSICAL EXAMINATION: VITAL SIGNS: The patient's overnight vital signs, T-max 97.8; telemetry shows sinus rhythm, heart rate in the 60, 79, 74; blood pressure 130/78, 113/70, 138/89; respirations 20; O2 sat 96%. HEENT: Head examination normocephalic, atraumatic. HEENT examination shows pink conjunctivae. Anicteric sclerae. No oropharyngeal lesion. No neck rigidity. CHEST: Symmetrical. LUNGS: Shows no rales, crackles or wheezing. CARDIOVASCULAR: S1, S2. Regular rhythm. ABDOMEN: Soft. Positive bowel sound. GENITALIA: Male. RECTAL: Deferred. SKIN: Right groin examination unchanged. EXTREMITY: Shows no pitting edema, no calf tenderness, no Homans' sign. MUSCULOSKELETAL: Shows a body mass index of 33.5. NEUROLOGICAL: The patient is alert, awake, oriented x3. Cranial nerves II through XII grossly intact. Gait examination is independent. DIAGNOSTICS: On 02/21/2018, WBC 8.4, hemoglobin and hematocrit 13.6 and 40, platelets 192. Sodium 144, potassium 4, chloride 106, CO2 of 29, anion gap 13, BUN 11, creatinine 0.7, GFR greater than 60, glucose 99, calcium 8.8, phosphorus 3.9, magnesium 2, AST 118, ALT 95, CPK 580. Troponin is down to 19.2 from 166. Vitamin D 25-hydroxy is 23.4. MRSA none detected. FINAL IMPRESSION, PLAN AND DISCHARGE DIAGNOSES: 1. Status post code heart. 2. Acute inferior wall ST-elevation myocardial infarction. 3. Status post emergency percutaneous transluminal coronary angioplasty and stent placement of the right coronary artery and stent placement of the left anterior descending artery. 4. . 5. Occluded posterolateral branch with intracoronary thrombus. 6. 80-90% stenosis of the mid left anterior descending artery. 7. Status post successful emergency angioplasty and drug-eluting stent placement of the occluded posterolateral branch of the right coronary artery with intracoronary thrombus. 8. Status post emergency angioplasty and stent placement of the mid left anterior descending artery. 9. Acute ST-elevation inferior wall myocardial infarction with ventricular tachycardia and cardiac arrest requiring defibrillation. 10. Status post ventricular tachycardia cardiac arrest requiring defibrillation. 11. Morbid obesity with elevated body mass index. 12. Transient leukocytosis and granulocytosis, probably reactive. 13. Acute ST-elevation inferior wall myocardial infarction with elevated troponin. 14. Syncope, probably secondary to acute ST-elevation myocardial infarction with elevated CPK and mild rhabdomyolysis. 15. Hypovitaminosis D. 16. Hypercholesteremia with elevated LDL. 17. Hypokalemia. 18. Prediabetes. 19. Transaminitis, probably secondary to acute myocardial infarction. 20. Microscopic hematuria. 21. Bacteriuria. 22. Urine drug screen positive for benzodiazepine and cannabinoids. 23. Acute inferior wall myocardial infarction. 24. Left ventricular ejection fraction of 50-58%. 25. Hyperlipidemia. 1. Right groin pain secondary to emergency percutaneous transluminal coronary angioplasty, cardiac catheterization and code heart. 2. Acute ST elevation inferior wall myocardial infarction. 3. Double vessel coronary artery disease. 4. Status post angioplasty with drug-eluting stent placement of the posterior descending artery of the right coronary and left anterior descending artery angioplasty and drug-eluting stent placement. 5. Acute inferior wall ST elevation myocardial infarction. 6. Idioventricular rhythm. 7 Low-grade fever. 8. Leukocytosis with granulocytosis. 9. Transaminitis. 10. Rhabdomyolysis with elevated CPK. 11. Status post syncope. 12. Acute ST elevation myocardial infarction with elevated troponin of 166. 13. Obesity. 14. Elevated body mass index. 15. Hyperlipidemia. 16. Status post ventricular tachycardia cardiac arrest. 1. Status pose code heart and acute inferior wall ST elevation myocardial infarction. 2. Syncope with questionable seizure-like activity. 3. Acute ST elevation myocardial infarction complicated by ventricular tachycardia, status post defibrillation x3. 4. Left ventricular ejection fraction of 50%. 5. Occluded posterolateral branch of the posterior descending artery. 6. A 80-90% stenosis of the mid left anterior descending artery. 7. Status post successful emergency angioplasty and drug-eluting stent placement of the occluded right coronary artery and percutaneous transluminal coronary angioplasty and stent placement of the mid left anterior descending artery. 8. Transient hypotension. 9. Leukocytosis with granulocytosis. 10. Hypokalemia. 11. Transaminitis secondary to acute ST elevation myocardial infarction. 12. Possible rhabdomyolysis and elevated CPK secondary to acute ST elevation myocardial infarction and elevated troponin. 13. Hypertriglyceridemia, hypercholesterolemia. 14. Hypovitaminosis D. 15. Microscopic hematuria. 16. Urine drug screen positive for benzos and cannabinoids. 17. Acute inferolateral myocardial infarction with idioventricular rhythm. 18. Acute inferior wall myocardial infarction with idioventricular rhythm. 19. Double vessel coronary artery disease. 20. Accelerated idioventricular rhythm. 1. Acute ST elevations inferolateral myocardial infarction with ST elevation in II, III, aVF and V6. 2. Ventricular tachycardia cardiac arrest. 3. Syncope secondary to acute ST elevation myocardial infarction and ventricular tachycardia cardiac arrest. 4. Status post code heart. 5. Status post percutaneous transluminal angioplasty and stent placement of the right coronary artery and left anterior descending artery. 6. Morbid obesity with elevated body mass index. 7. Hypokalemia. 8. Increased anion gap, possible increased anion gap metabolic acidosis. 9. Hyperglycemia. 10. Transaminitis. 11. Microscopic hematuria. 12. History of marijuana use with urine drug screen positive for cannabinoids and benzodiazepines. 13. Multivessel coronary artery disease. Plan at this time, the patient has been cleared by Cardiology for discharge. The patient has been advised to follow up with primary care doctor and Cardiology within 1 week. The patient was advised to release all records from this hospitalization to primary medical doctor and [employer] P[employer] Supervisor. The patient was advised to drink increased amount of fluid. DISCHARGE MEDICATIONS: Aspirin 325 mg daily, Lipitor 40 mg daily, Drisdol 50,000 units weekly, Protonix 40 mg daily, Brilinta 90 mg twice a day. During this hospitalization, the patient was extensively explained about the details of his medical condition, diagnoses, treatment plan, management plan, all discussed and explained to the patient and the patient's at length on multiple occasions. The patient was advised weight loss. The patient was advised cessation of recreational marijuana use. The patient was advised close followup with business objects architect and primary care physician. The patient was advised outpatient cardiac rehab. Time spent in the entire discharge process more than 45 minutes. Dictated and electronically signed, not read. Eric Duvall MD RACHEAL
--- NOTE | 2018-02-21 13:31 | CARD ---
APPROVED REPORT EKG Measurement Heart [id number] <Conclusion> Normal sinus rhythm Recent Inferior infarct, Abnormal ECG
== END 2018-02-21 10:55 | disposition home or self-care (01) | DRG 246 ==
LOC: ED 17:25 → CATH 17:30 → ICU 19:29 → 2RSO 02-19 12:42
PROVIDERS: ADMIT Internal Medicine Cardiovascular Disease; ATTEND Internal Medicine Cardiovascular Disease
PROC: 027135Z Dilation of Coronary Artery, Two Arteries with Two Drug-eluting Intraluminal Devices, Percutaneous Approach (ICD-10-PCS; principal; 2018-02-18)
PROC: 4A023N7 Measurement of Cardiac Sampling and Pressure, Left Heart, Percutaneous Approach (ICD-10-PCS; 2018-02-18)
PROC: B2111ZZ Fluoroscopy of Multiple Coronary Arteries using Low Osmolar Contrast (ICD-10-PCS; 2018-02-18)
PROC: B2151ZZ Fluoroscopy of Left Heart using Low Osmolar Contrast (ICD-10-PCS; 2018-02-18)
PROC: 5A2204Z Restoration of Cardiac Rhythm, Single (ICD-10-PCS; 2018-02-18)
PROC: 5A2204Z Restoration of Cardiac Rhythm, Single (ICD-10-PCS; 2018-02-18)
PROC: 3E033PZ Introduction of Platelet Inhibitor into Peripheral Vein, Percutaneous Approach (ICD-10-PCS; 2018-02-18)
DX: I21.19 ST elevation (STEMI) myocardial infarction involving other coronary artery of inferior wall (principal); I46.9 Cardiac arrest, cause unspecified; I49.01 Ventricular fibrillation; I47.2 Ventricular tachycardia; M62.82 Rhabdomyolysis; I44.2 Atrioventricular block, complete; D72.829 Elevated white blood cell count, unspecified; E55.9 Vitamin D deficiency, unspecified; E66.01 Morbid (severe) obesity due to excess calories; E78.00 Pure hypercholesterolemia, unspecified; E78.1 Pure hyperglyceridemia; E78.5 Hyperlipidemia, unspecified; E87.6 Hypokalemia; F12.90 Cannabis use, unspecified, uncomplicated; F17.290 Nicotine dependence, other tobacco product, uncomplicated; I25.10 Atherosclerotic heart disease of native coronary artery without angina pectoris; K21.9 Gastro-esophageal reflux disease without esophagitis; R09.02 Hypoxemia; R31.29 Other microscopic hematuria; R56.9 Unspecified convulsions; R73.03 Prediabetes; Z79.82 Long term (current) use of aspirin; Z79.899 Other long term (current) drug therapy; Z82.49 Family history of ischemic heart disease and other diseases of the circulatory system; Z83.49 Family history of other endocrine, nutritional and metabolic diseases; Z86.79 Personal history of other diseases of the circulatory system; Z68.33 Body mass index [BMI] 33.0-33.9, adult; R40.2412 Glasgow coma scale score 13-15, at arrival to emergency department; R74.0 Nonspecific elevation of levels of transaminase and lactic acid dehydrogenase [LDH]; R82.71 Bacteriuria